=== PATIENT | female | born 1955 | race Hispanic/Latino ===

== ENCOUNTER 2018-09-20 19:34 | Emergency (ER) | payer BC ==
[2018-09-20 20:24] LABS: CREATININE 0.8 mg/dL (0.5-1.5); POTASSIUM 3.8 mmol/L (3.5-5.1)
[2018-09-20 20:25] LABS: APPEARANCE,URINE Clear (CLEAR); BILIRUBIN,URINE Negative (NEGATIVE); COLOR,URINE Yellow (YELLOW); GLUCOSE, URINE (UA) Negative (NEGATIVE); KETONES,URINE Negative (NEGATIVE); LEUKOCYTE ESTERASE ,URINE Trace (NEGATIVE); NITRATE,URINE Negative (NEGATIVE); OCCULT BLOOD,URINE Negative (NEGATIVE); PH,URINE 5.5 (5.0-8.0); PROTEIN,URINE Negative (NEGATIVE); UROBILINOGEN,URINE 0.2 mg/dL (0.2-1.0)
[2018-09-20 20:27] LABS: BASOPHILS % (AUTO) 0.6 % (0.0-5.0); EOSINOPHILS % (AUTO) 0.8 % (0.0-8.0); HEMATOCRIT 46.5 % (36-48); LYMPHOCYTES % (AUTO) 31.7 % (21.0-51.0); MEAN CORPUSCULAR HEMOGLOBIN 32.6 pg (27.0-33.0); MEAN CORPUSCULAR HGB CONC 34.5 g/dL (32.0-36.0); MEAN CORPUSCULAR VOLUME 94.4 fL (79-99); MONOCYTES % (AUTO) 7.9 % (3.0-13.0); PLATELET COUNT (AUTO) 174 K/uL (130-400); RED BLOOD CELL COUNT(AUTO) 4.93 MIL/uL (4.00-5.50); RED CELL DISTRIBUTION WIDTH 12.6 % (11.0-15.5); WHITE BLOOD COUNT (AUTO) 6.9 K/uL (4.8-10.8)
[2018-09-20 20:29] LABS: BILIRUBIN,TOTAL 0.6 mg/dL (0.2-1.0); TOTAL PROTEIN, SERUM 7.5 g/dL (6.0-8.3)
[2018-09-20 20:50] LABS: BACTERIA,URINE Rare /HPF (None Seen); RBC,URINE None Seen /HPF (0-1); SQUAMOUS EPITHELIAL CELL,UR Rare /HPF (0-2); WBC,URINE 0-1 /HPF (0-1)
[2018-09-20] MEDS ORDERED: MECLIZINE HCL 25 MG TABLET ONE (22:16)
== END 2018-09-20 22:42 | disposition home or self-care (01) ==
LOC: EDH 19:34
DX: I10 Essential (primary) hypertension (principal); H81.399 Other peripheral vertigo, unspecified ear; R51 Headache; E03.9 Hypothyroidism, unspecified; Z88.8 Allergy status to other drugs, medicaments and biological substances; Z98.890 Other specified postprocedural states
CPT/HCPCS: 36415; 70450; 71045; 80053; 81001; 82150; 82550; 83690; 84443; 84484; 85025; 93005

== ENCOUNTER 2025-03-06 23:16 | Emergency (ER) | payer BC, OTHER ==
[~2025-03-06] VITALS: Ht 157.5 cm; Wt 90.7 kg
[2025-03-06 23:58] LABS: BASOPHILS # (AUTO) 0.03 K/uL (0.00-0.20); BASOPHILS % (AUTO) 0.5 % (0.0-5.0); EOSINOPHILS # (AUTO) 0.03 K/uL (0.00-0.70); EOSINOPHILS % (AUTO) 0.5 % (0.0-8.0); HEMATOCRIT 42.5 % (36-48); IMMATURE GRANULOCYTE ABSOLUTE 0.01 K/uL (0-1); LYMPHOCYTES # (AUTO) 1.5 K/uL (1.0-4.8); LYMPHOCYTES % (AUTO) 27.7 % (21.0-51.0); MEAN CORPUSCULAR HEMOGLOBIN 31.6 pg (27.0-33.0); MEAN CORPUSCULAR HGB CONC 34.4 g/dL (32.0-36.0); MONOCYTES # (AUTO) 0.5 K/uL (0.1-1.0); MONOCYTES % (AUTO) 9.5 % (3.0-13.0); NEUTROPHILS # (AUTO) 3.4 K/uL (1.8-7.7); NEUTROPHILS % (AUTO) 61.6 % (40.0-77.0); PLATELET COUNT (AUTO) 134 K/uL (130-400); RED BLOOD CELL COUNT(AUTO) 4.62 MIL/uL (4.00-5.50); RED CELL DISTRIBUTION WIDTH 12.5 % (11.0-15.5); WHITE BLOOD COUNT (AUTO) 5.5 K/uL (4.8-10.8)
[2025-03-07 00:07] LABS: CREATININE 0.8 mg/dL (0.5-1.0); MAGNESIUM 1.8 mg/dL (1.80-2.40); POTASSIUM 3.5 mmol/L (3.5-5.1)
[2025-03-07] MEDS: cloNIDine HCL 0.1 MG TABLET PO ONE (00:32)
--- NOTE | 2025-03-07 00:49 | HMCIMG ---
CHEST 1VW HISTORY: Chest pain COMPARISON: 09/20/2018 FINDINGS: A frontal projection of the chest was obtained. Mild bilateral pulmonary infiltrates are seen. The heart is borderline enlarged. Degenerative changes are seen. No evidence of aortic calcification is seen. IMPRESSION: 1. Mild bilateral pulmonary infiltrates.
[2025-03-07 01:55] VITALS: BP 140/70; PULSE 66; RESP 18; TEMP 98.6; O2SAT 97
--- NOTE | 2025-03-07 01:56 | ERN ---
General Chief Complaint: Hypertension Stated Complaint: HIGH BP Time Seen by MD: 23:19 Time Seen by Midlevel: 23:19 Source: patient History of Present Illness Initial Comments The patient is a 61-year-old female presenting to the emergency department for an elevated blood pressure reading at home. Patient reports developing a headache at home she proceeded to check her blood pressure and it was 200 systolic. This occurred approximately 1 hour prior to arrival. She called her primary care doctor who advised she report to the ER for further evaluation. She was last seen by her primary care doctor yesterday and is in the process of having her blood pressure medications adjusted. She has an appointment with your primary care doctor tomorrow for repeat evaluation. On arrival with the patients specifically denies any vision changes, headache, dizziness, chest pain, palpitations, or any other symptoms at this time. Allergies: Coded Allergies: cefprozil (Unverified Allergy, Unknown, 03/06/25) meperidine (Unverified Allergy, Unknown, 03/06/25) Past Medical History Past Medical History: Hypertension, Hypothyroid Past Surgical History: Other, Surgical History Other: LUMPECTOMY X2 ROS Dictation CONSTITUTIONAL: Negative except for HPI HEAD/FACE: Negative except for HPI EENT: Negative except for HPI RESPIRATORY: Negative except for HPI GASTROINTESTINAL/ABDOMINAL: Negative except for HPI GENITOURINARY: Negative except for HPI MUSCULOSKELETAL: Negative except for HPI INTEGUMENTARY: Negative except for HPI NEUROLOGICAL/PSYCH: Negative except for HPI HEMATOLOGIC/LYMPHATIC: Negative except for HPI All Systems Negative, Except as noted above. 13 point review of systems assessed and all negative except for above. Physical Exam Physical Exam Dictation Vital Signs reviewed General Appearance: Alert, oriented x 3, no acute distress, well developed, nourished. Head and Face: non-traumatic. Eyes: PERRL, pink conjunctivas, eyelid no trauma, anterior chamber with arcus senilis. Ears: Pinnas intact and no signs of trauma or erythema ear canals clear and no discharge TM no erythema Nose: No discharge, no bleeding. Oropharynx: Mouth normal, tongue pink, pharynx clear,no erythema, tonsils no exudates, no abscesses noted, mucous membrane moist Neck: Supple, non-tender, no thyromegaly, no masses, no JVD, no bruits Breast:Deferred Chest:No tenderness, no crepitus, no paradoxical movement, no retractions Lungs:Clear, well-ventilated, symmetric, no rales, no wheezing, no rhonchi, no stridor, good breath sounds bilaterally Heart: Regular rate, regular rhythm, no murmur, no gallops Vascular: no peripheral edema, Abdomen: Soft, positive bowel sounds, nondistended, no guarding, nontender, no rebound, no masses no hepatomegaly, no splenomegaly, no Andrews's sign, no hernias. Rectal: Deferred Genital: Deferred Neurological: Normal speech, motor function intact, sensory function intact Musculoskeletal: Neck nontender, full range of motion, back nontender, full range of motion, Extremities: nontender, full range of motion Skin: Color pink, dry, no turgor, no rash, no lacerations, no abrasions, no contusions. Lymphatic: Deferred Results Laboratory and Microbiology Lab and Micro Result Laboratory Tests Test 03/06/25 23:49 White Blood Count 5.5 K/uL (4.8-10.8) Red Blood Count 4.62 MIL/uL (4.00-5.50) Hemoglobin 14.6 g/dL (12.0-16.0) Hematocrit 42.5 % (36-48) Mean Corpuscular Volume 92.0 fL (79-99) Mean Corpuscular Hemoglobin 31.6 pg (27.0-33.0) Mean Corpuscular Hemoglobin Concent 34.4 g/dL (32.0-36.0) Red Cell Distribution Width 12.5 % (11.0-15.5) Platelet Count 134 K/uL (130-400) Mean Platelet Volume 10.6 fL (7.5-10.5) H Immature Granulocyte % (Auto) 0.2 % (0-1) Neutrophils (%) (Auto) 61.6 % (40.0-77.0) Lymphocytes (%) (Auto) 27.7 % (21.0-51.0) Monocytes (%) (Auto) 9.5 % (3.0-13.0) Eosinophils (%) (Auto) 0.5 % (0.0-8.0) Basophils (%) (Auto) 0.5 % (0.0-5.0) Neutrophils # (Auto) 3.4 K/uL (1.8-7.7) Lymphocytes # (Auto) 1.5 K/uL (1.0-4.8) Monocytes # (Auto) 0.5 K/uL (0.1-1.0) Eosinophils # (Auto) 0.03 K/uL (0.00-0.70) Basophils # (Auto) 0.03 K/uL (0.00-0.20) Absolute Immature Granulocyte (auto 0.01 K/uL (0-1) Nucleated Red Blood Cells 0.0 % (0.0-0.19) Sodium Level 139 mmol/L (136-145) Potassium Level 3.5 mmol/L (3.5-5.1) Chloride Level 100 mmol/L (101-111) L Carbon Dioxide Level 28 mmol/L (21-32) Blood Urea Nitrogen 14 mg/dL (7-18) Creatinine 0.8 mg/dL (0.5-1.0) Glomerular Filtration Rate Calc 80 mL/min (>90) Random Glucose 123 mg/dL (70-105) H Total Calcium 9.5 mg/dL (8.5-10.1) Magnesium Level 1.80 mg/dL (1.80-2.40) Troponin I High Sensitivity 7 ng/L (4-50) Labs Reviewed?: Yes MDM MDM: Differential diagnosis: Hypertensive urgency, hypertensive emergency, uncontrolled hypertension, electrolyte abnormality There are no social concerns with this patient. Prescription drug management Prescriptions will include: None Medical management and examination interpretation discussions were had by me with other qualified healthcare professionals as indicated for the patient's care. ED Course Orders Procedure Category Date Status Time 12 Lead Ekg Tracing- EKG 03/06/25 Logged Technical 23:33 Cbc With Differential LAB 03/06/25 Complete 23:33 Basic Metabolic Panel LAB 03/06/25 Complete 23:33 Magnesium LAB 03/06/25 Complete 23:33 Troponin I High LAB 03/06/25 Complete Sensitivity 23:33 Chest 1vw RAD 03/06/25 Resulted 23:33 Clonidine Hcl 0.1 Mg PHA 03/07/25 Complete Tablet (Catapres 0. 00:30 Current Medications Medications (Trade) Dose Ordered Sig/Cary Route PRN Reason Start Time Stop Time Status Last Admin Dose Admin Clonidine HCl (CATApres 0.1 mg TAB) 0.1 mg ONCE ONCE PO 03/07/25 00:30 03/07/25 00:31 DC 03/07/25 00:32 Vital Signs Date Time Temp Pulse Resp B/P (MAP) Pulse Ox O2 Delivery O2 Flow Rate FiO2 03/07/25 01:55 98.6 66 18 140/70 97 Room Air* 0 03/07/25 01:12 98.4 78 18 152/78 98 Room Air* 0 03/07/25 00:32 174/88 03/07/25 00:05 76 18 174/86 97 Room Air* 0 03/06/25 23:17 98.1 84 19 185/90 98 Room Air 0 [facility] [address] [place] [address] IMAGING REPORT Signed PATIENT: JED HOWARD MR#: [id number] : 1955 SEX: F AGE: 69 LOCATION: [facility] ORDER 33 STATUS: REG REPORT#: [id number] SERVICE 32 REASON: cp ORDERING PHYSICIAN: JENNIFER MANRIQUE PROCEDURE: CXR1VW - CHEST 1VW CHEST 1VW HISTORY: Chest pain COMPARISON: 09/20/2018 FINDINGS: A frontal projection of the chest was obtained. Mild bilateral pulmonary infiltrates are seen. The heart is borderline enlarged. Degenerative changes are seen. No evidence of aortic calcification is seen. IMPRESSION: 1. Mild bilateral pulmonary infiltrates. DICTATED BY: MANISHA MCKINLEY MD DATE: 03/07/2544 ELECTRONICALLY SIGNED BY: MANISHA MCKINLEY MD DATE: 03/07/259 DX & DISP Disposition: Discharge Departure Impression: Primary Impression: Uncontrolled hypertension Condition: Stable Additional Instructions: Your blood work today is unremarkable. Your EKG does not show any evidence of a heart attack. Your cardiac enzymes are negative. Your chest x-ray shows mild congestion which may be related to your history of bronchitis. Follow up with your primary care doctor tomorrow as scheduled. Referrals: SHARIF HARMON (PCP) Time of Disposition: 01:55 I have reviewed the case, and I agree with, Diagnosis and Plan I performed the substantive portion of the visit. I have reviewed and personally made and approve the management plan that is documented in the note by myself or the YADIEL. I acknowledge for responsibility for the patient's management plan. JENNIFER MANRIQUE Mar 07, 2025 01:56
--- NOTE | 2025-03-07 06:44 | EKG ---
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 : 1955 Requested By: JENNIFER MANRIQUE Order Number: [id number] Reading MD: Aniket Juarez Measurements Intervals [place] Rate: 77 P: 27 [place]: 184 QRS: 4 QRSD: 75 T: -3 QT: 391 QTc: 444 Interpretive Statements Sinus arrhythmia Atrial premature complex Borderline T abnormalities, diffuse leads Compared to ECG 09/20/2018 20:00:57 T-wave abnormality now present Sinus rhythm no longer present Left ventricular hypertrophy no longer present Myocardial infarct finding no longer present Electronically Signed On 03-07-2025 15:09:34 CDT by Aniket Juarez Please click the below link to view image of tracing.
== END 2025-03-07 02:06 | disposition home or self-care (01) ==
LOC: EDH 23:16
DX: I10 Essential (primary) hypertension (principal); E03.9 Hypothyroidism, unspecified; Z88.5 Allergy status to narcotic agent
CPT/HCPCS: 36415; 71045; 80048; 83735; 84484; 85025; 93005; 99285

== ENCOUNTER 2025-08-30 10:21 | Observation (INO) | payer OTHER ==
[~2025-08-30] VITALS: Ht 157.5 cm; Wt 76.8 kg
[~2025-08-30 10:21] MED LIST: AMLO2.5T4 PO; HYDR50TA PO; LEVO112C5 PO; LOSA100T59 PO; METF-444 PO; METO-409 PO
--- NOTE | 2025-08-30 10:41 | ERN ---
ED Note History of Present Illness Stated Complaint: ABDOMINAL PAIN Chief Complaint: Abdominal Pain Time Seen by MD: 10:26 Dictation: Patient is 70 years old female who came to ER during the recent hospitalization with a complaint of right upper quadrant pain x2 months and trigger with a greasy food. Abdominal ultrasound result revealed cholelithiasis with cholecystitis. Sludge in the gallbladder. Dilated common bile duct and intrahepatic biliary ducts recommend MRCP. Hepatic steatosis. .During evaluation of a patient stated that just recently she had done MRCP on last Monday which showed distended bile duct with large internal gallstone distended gallbladder with large internal gallstones and hepatic enlargement. ERCP was ordered and GI was consulted as well as surgeon was consulted for possible cholecystectomy. CT abdomen/pelvis showed choledocholithiasis with the distal CBD calculus. Gallbladder hydrops with large cholelithiasis. Hepatomegaly with hepatic steatosis. Subpleural reticulation in both lower lungs. Diffuse colonic diverticulosis without diverticulitis. Patient also underwent cholecystectomy on 07/27/[address] Kern. She came in today stating that she has had severe epigastric pain worse when she eats. She stated that there is a ERCP planned for 09/01/[address] Lynda Leahy. The ERCP attempted while she was hospitalized apparently was unsuccessful and the stone could not be retrieved. Temperature 97.6 pulse 81 respirations 20 blood pressure 144 over 82 pulse oximetry 99% on room air Chronic medical problems include diabetes mellitus, hypertension, hyperlipidemia, hypothyroidism, history of that breast lumpectomy Allergies: Coded Allergies: cefprozil (Unverified Allergy, Unknown, 03/06/25) meperidine (Unverified Allergy, Unknown, 03/06/25) Home Meds Reported Medications Metoprolol Succinate (Metoprolol Succinate) 100 Mg Tab.er.24h, 100 MG PO DAILY, TAB 07/26/25 Amlodipine Besylate (Amlodipine Besylate) 2.5 Mg Tablet, 1 TAB PO DAILY for 30 Days, #30 TAB 0 Refills 07/25/25 Levothyroxine Sodium (Levothyroxine) 112 Mcg Capsule, 1 CAP PO DAILY for 30 Days, #30 CAP 0 Refills 07/25/25 Hydrochlorothiazide (Hydrochlorothiazide) 50 Mg Tablet, 1 TAB PO DAILY for 30 Days, #30 TAB 0 Refills 07/25/25 Losartan Potassium (Losartan Potassium) 100 Mg Tablet, 1 TAB PO DAILY for 30 Days, #30 TAB 0 Refills 07/25/25 Metformin HCl (Metformin HCl) 500 Mg Tablet, 500 MG PO AM, TAB 07/25/25 Past Medical History Past Medical History: Diabetes-Type II, Hypertension, Hypothyroid Surgical History: BTL, Surgical History Other: LEFT LUMPECTOMY Family History: Negative Social History: Negative History: Not Applicable RN Note Reviewed/Agreed w/PFSH: Yes Review of System Dictation Constitutional: Negative for fever,chills, and weight loss Eyes: Negative for injury, pain,redness, and discharge ENT: Negative for injury,pain or swelling Cardiovascular: Negative for chest pain, palpitations, and edema Respiratory: Negative for shortness of breath, cough, and wheezing, Abdomen/GI: Positive for epigastric and right upper quadrant abdominal pain, nausea, vomiting, diarrhea, and constipation Back: Negative for injury and pain : Negative for injury, bleeding and discharge MS/Extremity: Negative for injury and deformity Skin: Negative for rash, and discoloration Neuro: Negative for headache, weakness, numbness, tingling, and seizure Psych: Negative for suicide ideation, homicidal ideation, and hallucinations Initial Vital Sign VS Vital Signs Date Time Temp Pulse Resp B/P (MAP) Pulse Ox O2 Delivery O2 Flow Rate FiO2 08/30/25 10:23 97.5 81 20 144/82 99 Room Air 08/30/25 11:23 0 21 Physical Exam Dictation General: awake, alert, NAD Head/Face: Normocephalic, atraumatic Eyes: PERRL, EOMI, vision at baseline ENT: oral cavity clear, TMs clear, no signs of infection Neck: Trachea midline, supple, no nuchal rigidity Cardiovascular: RRR, normal S1/S2, No MRGs, no JVD Respiratory: CTAB, no respiratory distress, No rales or wheezes Abdomen: Soft, tenderness in the epigastric area, non-distended, normal bowel sounds, no guarding or rebound. Skin: Warm, dry, normal turgor, no rash MS/Extremity: Pulses equal, no cyanosis, neurovascular intact, FROM Neuro: COAx4, GCS 15, strength 5/5, CN 2-12 intact, normal cerebellar exam, normal gait, Psych: Normal behavior, mood, and affect normal Extremities-trace edema without any palpable cords, Homans sign is negative Results (Laboratory/Radiology) Laboratory/Radiology Laboratory Tests Test 08/30/25 10:50 08/30/25 11:07 08/30/25 15:59 08/30/25 19:37 White Blood Count 5.3 K/uL (4.8-10.8) Red Blood Count 4.19 MIL/uL (4.00-5.50) Hemoglobin 13.7 g/dL (12.0-16.0) Hematocrit 40.1 % (36-48) Mean Corpuscular Volume 95.7 fL (79-99) Mean Corpuscular Hemoglobin 32.7 pg (27.0-33.0) Mean Corpuscular Hemoglobin Concent 34.2 g/dL (32.0-36.0) Red Cell Distribution Width 13.3 % (11.0-15.5) Platelet Count 189 K/uL (130-400) Mean Platelet Volume 10.5 fL (7.5-10.5) Immature Granulocyte % (Auto) 0.4 % (0-1) Neutrophils (%) (Auto) 66.6 % (40.0-77.0) Lymphocytes (%) (Auto) 17.9 % (21.0-51.0) L Monocytes (%) (Auto) 11.7 % (3.0-13.0) Eosinophils (%) (Auto) 2.6 % (0.0-8.0) Basophils (%) (Auto) 0.8 % (0.0-5.0) Neutrophils # (Auto) 3.5 K/uL (1.8-7.7) Lymphocytes # (Auto) 1.0 K/uL (1.0-4.8) Monocytes # (Auto) 0.6 K/uL (0.1-1.0) Eosinophils # (Auto) 0.14 K/uL (0.00-0.70) Basophils # (Auto) 0.04 K/uL (0.00-0.20) Absolute Immature Granulocyte (auto 0.02 K/uL (0-1) Nucleated Red Blood Cells 0.0 % (0.0-0.19) Sodium Level 138 mmol/L (136-145) Potassium Level 3.5 mmol/L (3.5-5.1) Chloride Level 102 mmol/L (101-111) Carbon Dioxide Level 30 mmol/L (21-32) Blood Urea Nitrogen 10 mg/dL (7-18) Creatinine 0.9 mg/dL (0.5-1.0) Glomerular Filtration Rate Calc 69 mL/min (>90) Random Glucose 142 mg/dL (70-105) H Total Calcium 9.0 mg/dL (8.5-10.1) Total Bilirubin 1.6 mg/dL (0.2-1.0) H Aspartate Amino Transf (AST/SGOT) 66 U/L (10-37) H Alanine Aminotransferase (ALT/SGPT) 70 U/L (12-78) Alkaline Phosphatase 255 U/L (50-136) H Total Protein 7.3 g/dL (6.0-8.3) Albumin 3.2 g/dL (3.5-5.0) L Lipase 26 U/L (16-77) Urine Color YELLOW (YELLOW) Urine Appearance HAZY (CLEAR) Urine pH 6.0 (5.0-8.0) Urine Specific [place] 1.015 (1.001-1.031) Urine Protein NEGATIVE mg/dL (NEGATIVE) Urine Glucose (UA) NEGATIVE mg/dL (NEGATIVE) Urine Ketones NEGATIVE mg/dL (NEGATIVE) Urine Occult Blood NEGATIVE (NEGATIVE) Urine Nitrate NEGATIVE (NEGATIVE) Urine Bilirubin NEGATIVE mg/dL (NEGATIVE) Urine Urobilinogen 2.0 mg/dL (0.2-1.0) H Urine Leukocyte Esterase 250 Vinicio/uL (NEGATIVE) H Urine RBC 0-1 /HPF (0-1) Urine WBC 11-25 /HPF (0-1) H Urine Squamous Epithelial Cells MOD /HPF (0-2) Urine Bacteria FEW /HPF (None Seen) Whole Blood Glucose 96 MG/DL (70-110) 122 MG/DL (70-110) H Test 08/31/25 05:28 08/31/25 05:53 08/31/25 11:18 08/31/25 19:22 Whole Blood Glucose 110 MG/DL (70-110) 96 MG/DL (70-110) 79 MG/DL (70-110) White Blood Count 5.5 K/uL (4.8-10.8) Red Blood Count 3.71 MIL/uL (4.00-5.50) L Hemoglobin 11.8 g/dL (12.0-16.0) L Hematocrit 35.5 % (36-48) L Mean Corpuscular Volume 95.7 fL (79-99) Mean Corpuscular Hemoglobin 31.8 pg (27.0-33.0) Mean Corpuscular Hemoglobin Concent 33.2 g/dL (32.0-36.0) Red Cell Distribution Width 13.2 % (11.0-15.5) Platelet Count 118 K/uL (130-400) #L Mean Platelet Volume 10.4 fL (7.5-10.5) Nucleated Red Blood Cells 0.0 % (0.0-0.19) Sodium Level 141 mmol/L (136-145) Potassium Level 3.3 mmol/L (3.5-5.1) L Chloride Level 106 mmol/L (101-111) Carbon Dioxide Level 27 mmol/L (21-32) Blood Urea Nitrogen 9 mg/dL (7-18) Creatinine 0.7 mg/dL (0.5-1.0) Glomerular Filtration Rate Calc 94 mL/min (>90) Random Glucose 104 mg/dL (70-105) Total Calcium 8.2 mg/dL (8.5-10.1) L Magnesium Level 1.70 mg/dL (1.80-2.40) L Total Bilirubin 0.9 mg/dL (0.2-1.0) # Direct Bilirubin 0.4 mg/dL (0.0-0.3) H Aspartate Amino Transf (AST/SGOT) 38 U/L (10-37) H Alanine Aminotransferase (ALT/SGPT) 47 U/L (12-78) # Alkaline Phosphatase 195 U/L (50-136) H Total Protein 5.8 g/dL (6.0-8.3) #L Albumin 2.5 g/dL (3.5-5.0) #L Labs Reviewed?: Yes ED Course ED Course Orders Procedure Category Date Status Time Cbc With Differential LAB 08/30/25 Complete 10:42 Comprehensive LAB 08/30/25 Complete Metabolic Panel 10:42 Urinalysis Profile LAB 08/30/25 Complete 10:42 Pantoprazole 40mg Inj PHA 08/30/25 Complete (Protonix 40mg Inj 11:00 Lipase LAB 08/30/25 Complete 10:42 Ketorolac PHA 08/30/25 Complete Tromethamine 15mg/Ml 11:00 Culture Urine MARIANA 08/30/25 In Process 11:39 0.9%Nacl 1000ml (Ns PHA 08/30/25 Complete 1000ml) 12:00 Amp/Sulbac 3gm+Ns PHA 08/30/25 Complete 100ml (Unasyn 3gm+Ns 1 12:00 Admit Orders ADM 08/30/25 Transmitted 12:34 Edm Admit Bridge Order ADM 08/30/25 Transmitted 12:43 Amp/Sulbac 3gm+Ns PHA 08/30/25 In Process 100ml (Unasyn 3gm+Ns 1 20:00 Gastroenterology CONPHYSVC 08/30/25 Transmitted Consult 13:36 Cbc Without LAB 08/31/25 Complete Differential 04:00 Magnesium LAB 08/31/25 Complete 04:00 Hepatic Function Panel LAB 08/31/25 Complete 04:00 Acetaminophen 325 Tab PHA 08/30/25 In Process (Tylenol 325mg Tab 14:00 Acetaminophen 325 Tab PHA 08/30/25 In Process (Tylenol 325mg Tab 14:00 Ondansetron 4mg Inj PHA 08/30/25 In Process (Zofran 4mg Inj) 14:00 Initiate Hypoglycemia RAISSA 08/30/25 In Process Protocol 13:36 Dextrose 50%-Water PHA 08/30/25 In Process (D50w) 14:00 Glucagon 1mg Kit PHA 08/30/25 In Process (Glucagon 1mg Kit) 14:00 Initiate RAISSA 08/30/25 In Process Hyperglycemia Protoco 13:36 Insulin Regular, PHA 08/30/25 In Process Human 3ml (Humulin R 16:30 Magnesium 2gm Premix PHA 08/30/25 Complete 50ml (Magnesium 2gm 14:00 Us Abdominal Complete US 08/30/25 Resulted 13:54 Clear Liquid DIET 08/30/25 Complete Lunch Blood Sugars Achs CPOE 08/30/25 Transmitted 13:55 0.9%Nacl 1000ml (Ns PHA 08/30/25 In Process 1000ml) 14:00 Pantoprazole 40mg Inj PHA 08/30/25 In Process (Protonix 40mg Inj 21:00 Apply Scds CPOE 08/30/25 Transmitted 14:15 *Nursing CPOE 08/30/25 Transmitted Communication: 16:57 Npo After Midnight RAISSA 09/01/25 Transmitted 00:00 Consent Ercp CPOE 09/01/25 Transmitted 07:00 Schedule Or Consented CPOE 09/01/25 Transmitted Surgery 07:00 *Nursing CPOE 08/30/25 Transmitted Communication: 17:58 Basic Metabolic Panel LAB 08/31/25 Complete 04:00 Nothing By Mouth DIET 09/01/25 Transmitted Breakfast Potassium Chloride PHA 08/31/25 Complete 20meq Er (K-Dur/Klor- 09:00 Magnesium 2gm Premix PHA 08/31/25 In Process 50ml (Magnesium 2gm 09:00 Cbc With Differential LAB 09/01/25 In Process 04:00 Comprehensive LAB 09/01/25 In Process Metabolic Panel 04:00 Magnesium LAB 09/01/25 In Process 04:00 Amlodipine 2.5 Mg Tab PHA 08/31/25 Complete (Norvasc 2.5mg Tab 09:00 Losartan 100 Mg PHA 08/31/25 In Process Tablet (Cozaar 100mg 09:00 Hydrochlorothiazide PHA 09/01/25 In Process 25mg (Hydrochlorothi 09:00 Levothyroxine 112 Mcg PHA 09/01/25 In Process Tablet (Synthroid 06:30 Metoprolol Succinate PHA 09/01/25 Complete (Toprol Xl) 09:00 Amlodipine 2.5 Mg Tab PHA 08/31/25 In Process (Norvasc 2.5mg Tab 21:00 Metoprolol Succinate PHA 08/31/25 In Process (Toprol Xl) 21:00 Nothing By Mouth DIET 08/31/25 Complete Lunch Ercp Bili/Panc Duct RAD 08/31/25 Logged 11:00 Schedule Or Consented CPOE 08/31/25 Transmitted Surgery 11:00 Iv Insertion CPOE 08/31/25 Transmitted 11:00 Current Medications Medications (Trade) Dose Ordered Sig/Cary Route PRN Reason Start Time Stop Time Status Last Admin Dose Admin Ampicillin Sodium/ Sulbactam Sodium (Unasyn 3gm+NS 100ml) 3 gm ONCE ONCE IV 08/30/25 12:00 08/30/25 12:01 DC 08/30/25 12:34 Ketorolac Tromethamine (toRADol) 15 mg ONCE ONCE IV 08/30/25 11:00 08/30/25 11:01 DC Pantoprazole Sodium (PROTonix 40MG INJ) 40 mg ONCE ONCE IVP 08/30/25 11:00 08/30/25 11:01 DC 08/30/25 11:08 Sodium Chloride 1,000 ml @ 0 mls/hr ONCE ONCE IV 08/30/25 12:00 08/30/25 12:01 DC 08/30/25 12:34 Vital Signs Date Time Temp Pulse Resp B/P (MAP) Pulse Ox O2 Delivery O2 Flow Rate FiO2 09/01/25 03:56 98.1 71 18 132/63 99 Room Air 09/01/25 00:00 98.1 79 18 140/76 99 Room Air 08/31/25 20:10 98 Room Air* 0 08/31/25 20:01 98.1 82 18 151/83 98 Room Air 08/31/25 16:00 98.1 81 18 151/74 98 Room Air 08/31/25 12:00 97.9 76 19 147/77 98 Room Air 08/31/25 08:25 98 Room Air* 0 08/31/25 08:00 98.1 76 18 142/77 98 Room Air 08/31/25 03:56 98.4 77 18 130/71 99 Room Air 08/31/25 00:02 98.4 74 18 130/72 99 Room Air 08/30/25 20:10 99 Room Air* 0 08/30/25 20:10 98.4 72 18 137/71 99 Room Air 08/30/25 15:15 97.9 73 19 132/62 98 Room Air 08/30/25 15:00 97.3 71 15 129/71 97 Room Air* 0 08/30/25 12:45 97.3 72 16 139/73 99 Room Air* 0 08/30/25 11:23 97.3 67 16 158/82 97 Room Air* 0 08/30/25 10:23 97.5 81 20 144/82 99 Room Air Medical Decision Making MDM Differential diagnosis, Renal colic, biliary colic Gastritis, esophagitis, gastroesophageal reflux disease, acute cholecystitis, peptic ulcer disease, gastroenteritis, colitis, constipation, pancreatitis, diverticulitis Patient is 70 years old female who came to ER during the recent hospitalization with a complaint of right upper quadrant pain x2 months and trigger with a greasy food. Abdominal ultrasound result revealed cholelithiasis with cholecystitis. Sludge in the gallbladder. Dilated common bile duct and intrahepatic biliary ducts recommend MRCP. Hepatic steatosis. .During evaluation of a patient stated that just recently she had done MRCP on last Monday which showed distended bile duct with large internal gallstone distended gallbladder with large internal gallstones and hepatic enlargement. ERCP was ordered and GI was consulted as well as surgeon was consulted for possible cholecystectomy. CT abdomen/pelvis showed choledocholithiasis with the distal CBD calculus. Gallbladder hydrops with large cholelithiasis. Hepatomegaly with hepatic steatosis. Subpleural reticulation in both lower lungs. Diffuse colonic diverticulosis without diverticulitis. Patient also underwent cholecystectomy on 07/27/[address] Kern. She came in today stating that she has had severe epigastric pain worse when she eats. She stated that there is a ERCP planned for 09/01/[address] Lynda Leahy. The ERCP attempted while she was hospitalized apparently was unsuccessful and the stone could not be retrieved. Temperature 97.6 pulse 81 respirations 20 blood pressure 144 over 82 pulse oximetry 99% on room air Chronic medical problems include diabetes mellitus, hypertension, hyperlipidemia, hypothyroidism, history of that breast lumpectomy 11:50 a.m. labs reviewed CBC with a normal limits. Patient's LFTs are very abnormal alkaline phosphatase is 255 bilirubin is 1.6. Urinalysis was very abnormal with positive leuko esterase and increased amounts of WBCs suggestive of UTI I updated the patient and spouse on all the findings and my concerns for poss ible cholangitis versus simply choledocholithiasis related pain. I also updated them about the UTI and recommended admission to the hospital in view of multiple issues and they both were agreeable 12:40 p.m. patient accepted by Jessica Hancock mid-level provider for hospitalist group for admission and further management Rationale: Tests considered and ordered secondary to shared decision making include: labs, ECG and radiology Previous outside records reviewed: Old ER visits. Risk of complication and/or morbidity or mortality of patient management: None Medications-Per medication reconciliation Need for hospitalization: Patient does meet criteria for hospitalization. Need for emergency major/minor surgery: No There are no social concerns with this patient. Prescription drug management Prescriptions will include symptomatic care Patient's prior external medical records from other ER visits were reviewed by me as indicated. Prior testing and results from previous visits were reviewed. Prior tests were taken into account with medical decision making and resource utilization, independent historian/historians were used to obtain complete medical history. I independently interpreted the test that were performed, results were reviewed by me and considered findings on radiology if ordered. Medical management and examination interpretation discussions were had by me with other qualified healthcare professionals as indicated for the patient's care. Problem List Problem List: (1) Cholangitis (2) Choledocholithiasis (3) Epigastric abdominal pain (4) UTI (urinary tract infection) DX & DISP Disposition: Inpatient Decision to Admit Time: 11:10 Departure Impression: Primary Impression: Cholangitis Additional Impressions: Choledocholithiasis, UTI (urinary tract infection), Epigastric abdominal pain Condition: Stable Additional Instructions: Patient was informed of all the diagnostic labs and procedures conducted in the emergency room today and demonstrated understanding of the results. I personally reviewed and interpreted all the diagnostic exams performed in the ER today. The patient will be admitted to the hospital for further treatment and evaluation. Disposition-admit to facility Condition-stable/guarded Course-uncertain at this time Pain status-decreased Assessment-exam unchanged Admission Certification- I certify that the patients status is appropriate and is based on my best clinical judgment and the patient's condition as documented in the medical records Referrals: SHARIF HARMON (PCP) RUIZ MEDLEY MD Aug 30, 2025 10:41
[2025-08-30 11:08] LABS: IMMATURE GRANULOCYTE ABSOLUTE 0.02 K/uL (0-1); NUCLEATED RED BLOOD CELLS 0.0 % (0.0-0.19); PLATELET COUNT (AUTO) 189 K/uL (130-400); RED BLOOD CELL COUNT(AUTO) 4.19 MIL/uL (4.00-5.50); RED CELL DISTRIBUTION WIDTH 13.3 % (11.0-15.5); WHITE BLOOD COUNT (AUTO) 5.3 K/uL (4.8-10.8)
[2025-08-30 11:13] LABS: CREATININE 0.9 mg/dL (0.5-1.0); GLOMERULAR FILTR. RATE CALC 69.0 mL/min (>90); GLUCOSE,RANDOM 142.0 mg/dL (70-105); SODIUM SERUM 138.0 mmol/L (136-145); UREA NITROGEN, BLOOD 10.0 mg/dL (7-18)
[2025-08-30 11:17] LABS: ASPARTATE AMINOTRANSFERASE 66.0 U/L (10-37); TOTAL PROTEIN, SERUM 7.3 g/dL (6.0-8.3)
[2025-08-30 11:37] LABS: GLUCOSE, URINE (UA) NEGATIVE (NEGATIVE); LEUKOCYTE ESTERASE ,URINE 250 Leu/uL (NEGATIVE); NITRATE,URINE NEGATIVE (NEGATIVE); OCCULT BLOOD,URINE NEGATIVE (NEGATIVE)
[2025-08-30 11:39] LABS: ADD UA MICROSCOPIC YES; APPEARANCE,URINE HAZY (CLEAR)
[2025-08-30 11:43] LABS: SQUAMOUS EPITHELIAL CELL,UR MOD /HPF (0-2)
[2025-08-30] MEDS: 0.9%NACL 1000ML 1,000 ML IV ONE (12:34)
[2025-08-30] MEDS: AMP/SULBAC 3GM+NS 100ML IV ONE (12:34)
[2025-08-30] MEDS ORDERED: GLUCAGON 1MG KIT 1 MG ML IM PRN (14:00)
[2025-08-30] MEDS ORDERED: DEXTROSE 50%-WATER 50 ML DISP.SYRIN IV PRN (14:00)
--- NOTE | 2025-08-30 14:18 | HP ---
[facility] HISTORY AND PHYSICAL Date of Service: Aug 30, 2025 Time of Service: 13:57 HISTORY OF PRESENT ILLNESS: [This is 70 year old female with past medical history of diabetes mellitus, hypertension, hyperlipidemia and hypothyroidism who presented to the emergency department with complaints of abdominal pain and epigastric pain that started midnight on . Patient stated that she also had some associated chills and subjective low-grade fever. Patient was recently admitted at [facility] back in [id number] for which patient was then found with choledocholithiasis and acute cholecystitis for which she had a laparoscopic cholecystectomy done by Dr. Plaza. During that admission, she was told to have a stone in the CBD and an ERCP was done but was unsuccessful but they rescheduled for another ERCP for September 01, 2025 but the patient came to the emergency early this morning due to persistent/severe abdominal and epigastric pain. Patient denies any nausea vomiting or diarrhea. Patient stated that she would still have some discomfort after she eats but has not had a full meal in the last 24 hours due to her abdominal pain. In the emergency department, her initial vitals were temperature 97.5 F, pulse 81, respiratory rate 20, blood pressure 144/82, pulse oximetry 99% on room air. Laboratory data reviewed, hematology is fairly unremarkable, chemistry showed random glucose of 142, total bilirubin of 1.6, AST 66, ALT 70, alkaline phosphatase 255, albumin 3.2. Was referred to the hospitalist for further evaluation and management. ] REVIEW OF SYSTEMS CONSTITUTIONAL: Denies fevers, chills, or night sweats. No unintentional weight loss reported. NEUROLOGICAL: Denies headache, amaurosis fugax, motor weakness, sensory deficit, vertigo/spinning sensation, gait abnormalities, or tremors. ENT: No hearing loss, otalgia, otorrhea, rhinitis, rhinorrhea, hoarseness, or sore throat. CARDIOVASCULAR: Denies any exertional angina, dyspnea on exertion, orthopnea, paroxysmal nocturnal dyspnea, palpitations, life-threatening arrhythmias, claudication. PULMONARY: Denies any shortness of breath, cough, phlegm/sputum, hemoptysis, pleuritic chest pain. SLEEP: Denies morning headaches, daytime somnolence or napping. Denies difficulty falling asleep, staying asleep, waking from sleep. Denies knowledge of snoring. GASTROINTESTINAL: Denies any type of dysphagia to either liquids or solids. Denies nausea, vomiting, pyrosis, early satiety, abdominal pain, diarrhea, co nstipation, or changes in stool consistency or caliber. Denies coffee-ground emesis, hematemesis, hematochezia, or melanotic stools. GENITOURINARY: Denies frequency, urgency, nocturia, hematuria or incontinence (Storage/Irritative symptoms.) Low urinary stream, straining to void, urinary intermittency or hesitancy, splitting of the voiding stream, terminal dribbling. ENDOCRINOLOGIC: Denies polyuria, polydipsia, polyphagia or heat/cold intolerances. HEMATOLOGIC: Denies thrombophilia/previous clots, or coagulopathy/bleeding disorders. ONCOLOGIC: Denies personal history of malignancy. DERMATOLOGIC: Denies rashes or pruritus. PSYCHIATRIC: Denies any suicidal or homicidal ideation. Denies hallucinations. PAST MEDICAL HISTORY: [ Diabetes, hypertension, hyperlipidemia and hypothyroidism ] PAST SURGICAL HISTORY: [ x2 and left breast lumpectomy ] PAST SOCIAL HISTORY: [ Patient lives with . Patient denies alcohol tobacco and recreational drug use] FAMILY HISTORY: [ Noncontributory ] Coded Allergies: cefprozil (Unverified Allergy, Unknown, 03/06/25) meperidine (Unverified Allergy, Unknown, 03/06/25) PHYSICAL EXAM GENERAL APPEARANCE: The patient is awake, alert, and oriented, in no acute cardiopulmonary distress. NEUROLOGICAL: Cranial nerves II-XII grossly intact. Motor is 5/5 in bilateral upper and lower extremities proximal to distal. No sensory deficits. HEENT: Face is symmetric. Pupils are equal and reactive. Extraocular movements are intact. NECK: Supple. No JVD. No thyromegaly. No submental, submandibular, pre-/postauricular, occipital or supraclavicular lymphadenopathy. CHEST: Normal chest expansion. No Telemetry. LUNGS: Absence of any rales, rhonchi or any wheezing. CARDIOVASCULAR: Regular. S1 and S2 normal. No appreciable rubs, murmurs or gallops. ABDOMEN: Soft, nontender, and nondistended. There is no rebound, voluntary guarding, or rigidity. : Deferred. No Madden. EXTREMITIES: Non-edematous and not cyanotic. No clubbing. Good capillary refill. SKIN: No skin breakdown. Vital Sign (Last 24 Hours) 08/30/25 12:45 Temp 97.3 Pulse 72 Resp 16 B/P (MAP) 139/73 Pulse Ox 99 O2 Delivery Room Air* O2 Flow Rate 0 FiO2 21 LABS: Laboratory: Test 08/30/25 11:07 08/30/25 10:50 Range/Units Urine Color YELLOW YELLOW Urine Appearance HAZY CLEAR Urine pH 6.0 5.0-8.0 Urine Specific [place] 1.015 1.001-1.031 Urine Protein NEGATIVE NEGATIVE mg/dL Urine Glucose (UA) NEGATIVE NEGATIVE mg/dL Urine Ketones NEGATIVE NEGATIVE mg/dL Urine Occult Blood NEGATIVE NEGATIVE Urine Nitrate NEGATIVE NEGATIVE Urine Bilirubin NEGATIVE NEGATIVE mg/dL Urine Urobilinogen 2.0 H 0.2-1.0 mg/dL Urine Leukocyte Esterase 250 H NEGATIVE Vinicio/uL Urine RBC 0-1 0-1 /HPF Urine WBC 11-25 H 0-1 /HPF Urine Squamous Epithelial Cells MOD 0-2 /HPF Urine Bacteria FEW None Seen /HPF White Blood Count 5.3 4.8-10.8 K/uL Red Blood Count 4.19 4.00-5.50 MIL/uL Hemoglobin 13.7 12.0-16.0 g/dL Hematocrit 40.1 36-48 % Mean Corpuscular Volume 95.7 79-99 fL Mean Corpuscular Hemoglobin 32.7 27.0-33.0 pg Mean Corpuscular Hemoglobin Concent 34.2 32.0-36.0 g/dL Red Cell Distribution Width 13.3 11.0-15.5 % Platelet Count 189 130-400 K/uL Mean Platelet Volume 10.5 7.5-10.5 fL Immature Granulocyte % (Auto) 0.4 0-1 % Neutrophils (%) (Auto) 66.6 40.0-77.0 % Lymphocytes (%) (Auto) 17.9 L 21.0-51.0 % Monocytes (%) (Auto) 11.7 3.0-13.0 % Eosinophils (%) (Auto) 2.6 0.0-8.0 % Basophils (%) (Auto) 0.8 0.0-5.0 % Neutrophils # (Auto) 3.5 1.8-7.7 K/uL Lymphocytes # (Auto) 1.0 1.0-4.8 K/uL Monocytes # (Auto) 0.6 0.1-1.0 K/uL Eosinophils # (Auto) 0.14 0.00-0.70 K/uL Basophils # (Auto) 0.04 0.00-0.20 K/uL Absolute Immature Granulocyte (auto 0.02 0-1 K/uL Nucleated Red Blood Cells 0.0 0.0-0.19 % Sodium Level 138 136-145 mmol/L Potassium Level 3.5 3.5-5.1 mmol/L Chloride Level 102 101-111 mmol/L Carbon Dioxide Level 30 21-32 mmol/L Blood Urea Nitrogen 10 7-18 mg/dL Creatinine 0.9 0.5-1.0 mg/dL Glomerular Filtration Rate Calc 69 >90 mL/min Random Glucose 142 H 70-105 mg/dL Total Calcium 9.0 8.5-10.1 mg/dL Total Bilirubin 1.6 H 0.2-1.0 mg/dL Aspartate Amino Transf (AST/SGOT) 66 H 10-37 U/L Alanine Aminotransferase (ALT/SGPT) 70 12-78 U/L Alkaline Phosphatase 255 H 50-136 U/L Total Protein 7.3 6.0-8.3 g/dL Albumin 3.2 L 3.5-5.0 g/dL Lipase 26 16-77 U/L Current Medications Medications (Trade) Dose Ordered Sig/Cary Route PRN Reason Start Time Stop Time Status Last Admin Dose Admin Acetaminophen (TYLenol 325MG TAB) 650 mg Q4H PRN PO TEMPERATURE GREATER THAN 101.5 08/30/25 14:00 09/29/25 13:59 UNV Acetaminophen (TYLenol 325MG TAB) 650 mg Q6H PRN PO MILD PAIN (1-3) 08/30/25 14:00 09/29/25 13:59 UNV Ampicillin Sodium/ Sulbactam Sodium 100 ml @ 200 mls/hr Q6H IV 08/30/25 20:00 09/06/25 20:00 Dextrose (D50w) 50 ml AD PRN IV HYPOGLYCEMIA PROTOCOL 08/30/25 14:00 09/29/25 13:59 UNV Glucagon (Glucagon 1mg Kit) 1 mg AD PRN IM HYPOGLYCEMIA PROTOCOL 08/30/25 14:00 09/29/25 13:59 UNV Insulin Human Regular (humuLIN R 100 UNIT/ML 3ML) INSULIN SLIDING SCAL... ACHS SQ 08/30/25 16:30 09/29/25 16:29 UNV Magnesium Sulfate 50 ml @ 0 mls/hr PROTOCOL PRN IV MAGNESIUM PROTOCOL 08/30/25 14:00 09/29/25 13:59 UNV Ondansetron HCl (zoFRAN 4MG INJ) 4 mg Q6H PRN IVP NAUSEA/VOMITING 08/30/25 14:00 09/29/25 13:59 UNV DIAGNOSTICS / RADIOLOGY: [ ] ASSESSMENT: [Intractable abdominal pain, POA Urinary tract infection, POA Choledocholithiasis, POA Rule out cholangitis, POA ] Hyperglycemia with diabetes mellitus type 2, POA Elevated total bilirubin, POA PLAN: [Patient to medical telemetry floor Patient can have clear liquid diet Patient will be started with IV antibiotic with Unasyn every 8 hours Patient continue with gentle IV fluids with NS at 75 mL/hour Patient to check a.c. and HS glucometer and insulin sliding scale Continue with supportive care with nausea/vomiting/pain management We will consult underground repairer are: Patient has scheduled ERCP on 09/01/2025 We will order complete abdominal ultrasound We will repeat labs tomorrow including LFTs GI and DVT prophylaxis Discussed plan with Dr. Aggarwal, above plan was formulated Full code ADVANCED CARE PLANNING 1. Which of the following were discussed? Hospice Care - Yes / No Therapeutic options - Yes / No Advance Directives - Yes / No Other discussions - 2. Discussed with who? Patient 3. Voluntary nature of this service was explained to the patient? Yes / No 4. Amount of time spent - _20 mins 5. Reviewed by Physician? (if this service was performed by NPP) Yes / No ADDENDUM: 1700H- I SPOKE WITH DR. MAO TO INFORM HER REGARDING THIS PATIENT'S ADMISSION, AND PLANS FOR AN ERCP FOR Monday09/01/2025, DISCUSSED THE CASE WITH HER AND SHE RECOMMENDED TO KEEP PATIENT NPO AFTER MIDNIGHT ON MONDAY, FOR PLANS OF ERCP Monday09/01/2025. ATTESTATION BY PHYSICIAN I have seen and examined the patient. I reviewed the documentation, medical decision making, and treatment plan as noted by the mid-level provider above. I agree with the findings and plan of care. XIMENA AGGARWAL MD,[facility] Aug 30, 2025 14:18
--- NOTE | 2025-08-30 14:45 | NUR ---
REPORT GIVEN TO MERLIN
[2025-08-30 15:15] VITALS: BP 132/62; PULSE 73; RESP 19; TEMP 97.9
[2025-08-30] MEDS: 0.9%NACL 1000ML 1,000 ML IV SCH (15:18)
[2025-08-30] MEDS: AMP/SULBAC 3GM+NS 100ML 100 ML IV SCH (20:08)
[2025-08-30 20:10] VITALS: BP 137/71; PULSE 72; RESP 18; TEMP 98.4; O2SAT 99
--- NOTE | 2025-08-30 20:10 | NUR ---
MEDS SHIFT ASSESSMENT DONE, PLEASE REFER TO CHART. DUE MEDS ADMINISTERED, TOLERATED WELL. KEPT RESTED AND COMFORTABLE IN BED. CALL LIGHT WITHIN REACH. FAMILY AT BEDSIDE.
--- NOTE | 2025-08-30 22:59 | HMCIMG ---
EXAM: Complete Abdominal Ultrasound HISTORY: Abdominal pain and urinary tract infection. Prior imaging available for review. TECHNIQUE: Real-time grayscale and color Doppler ultrasound evaluation of the abdomen was performed. COMPARISON: Prior abdominal ultrasound dated July 29, [address] abdomen and pelvis dated July 25, 2025. FINDINGS: LIVER: The liver measures approximately 15 cm in craniocaudal dimension. Hepatic parenchyma demonstrates mildly increased echogenicity, suggestive of mild hepatic steatosis. No focal hepatic mass is identified. The main portal vein is patent with hepatopetal flow measuring approximately 14 cm/s. There is persistent intrahepatic biliary ductal dilatation measuring up to approximately 0.5 cm, similar to the prior examination. GALLBLADDER: The gallbladder is surgically absent. Previously noted gallbladder distention, cholelithiasis, sludge, and sonographic findings of cholecystitis are no longer present. BILIARY SYSTEM: The common bile duct measures approximately 5 mm in diameter, decreased compared with the prior study which measured up to 12 mm. No intrahepatic or extrahepatic biliary ductal dilatation is identified. PANCREAS: The pancreas is visualized and demonstrates normal size, contour, and echotexture without focal abnormality or ductal dilatation. AORTA AND IVC: The abdominal aorta measures approximately 2.8 cm proximally, 2 cm at the mid portion, and 1.5 cm distally, without aneurysmal dilatation. The inferior vena cava is patent. RIGHT KIDNEY: The right kidney measures approximately 8.3 x 5 x 3.3 cm and demonstrates normal cortical thickness and echogenicity, similar to the prior examination. No hydronephrosis or renal calculus is identified. LEFT KIDNEY: The left kidney measures approximately 8.4 x 5.1 x 3.8 cm. Cortical thickness and echogenicity are preserved. No hydronephrosis, renal calculus, or focal renal mass is identified. SPLEEN: The spleen measures approximately 13 cm in length, mildly enlarged. No focal splenic lesion is identified. ASCITES: No free fluid is identified. IMPRESSION: * Interval cholecystectomy with resolution of previously seen cholelithiasis, gallbladder distention, and cholecystitis. * Decreased caliber of the common bile duct with persistent mild intrahepatic biliary ductal dilatation measuring up to 0.5 cm. * Mild hepatic steatosis, similar to prior examinations. * Mild splenomegaly. * Normal sonographic appearance of the pancreas and kidneys. * No sonographic evidence of ascites. RECOMMENDATIONS: Per ACR Appropriateness Criteria, correlation with liver function tests is recommended given persistent intrahepatic biliary ductal dilatation. Further evaluation with MRCP may be considered if there is clinical or laboratory evidence of biliary obstruction or if symptoms persist. /[place]
[2025-08-31] VITALS (8 sets, daily range): BP systolic 130–151; BP diastolic 71–83; PULSE 74–82; RESP 18–19; TEMP 97.9–98.5; O2SAT 98
--- NOTE | 2025-08-31 05:09 | NUR ---
ROUNDS PT SLEPT AT INTERVALS DURING THE SHIFT. NO DISTRESS NOTED. KEPT RESTED AND COMFORTABLE IN BED. CALL LIGHT WITHIN REACH. FOR MORE CARE.
[2025-08-31 06:02] LABS: NUCLEATED RED BLOOD CELLS 0.0 % (0.0-0.19); PLATELET COUNT (AUTO) 118.0 K/uL (130-400); RED BLOOD CELL COUNT(AUTO) 3.71 MIL/uL (4.00-5.50); RED CELL DISTRIBUTION WIDTH 13.2 % (11.0-15.5); WHITE BLOOD COUNT (AUTO) 5.5 K/uL (4.8-10.8)
[2025-08-31 06:22] LABS: ASPARTATE AMINOTRANSFERASE 38.0 U/L (10-37); CREATININE 0.7 mg/dL (0.5-1.0); GLOMERULAR FILTR. RATE CALC 94.0 mL/min (>90); GLUCOSE,RANDOM 104.0 mg/dL (70-105); SODIUM SERUM 141.0 mmol/L (136-145); TOTAL PROTEIN, SERUM 5.8 g/dL (6.0-8.3); UREA NITROGEN, BLOOD 9.0 mg/dL (7-18)
[2025-08-31] MEDS: MAGNESIUM 2GM PREMIX 50ML 50 ML IV PRN (06:32)
--- NOTE | 2025-08-31 08:35 | PN ---
[facility] PROGRESS NOTE Date of Service: Aug 31, 2025 Time of Service: 08:34 SUBJECTIVE: [ ] This is 70 year old female with past medical history of diabetes mellitus, hypertension, hyperlipidemia and hypothyroidism who presented to the emergency department with complaints of abdominal pain and epigastric pain that started midnight on . Patient stated that she also had some associated chills and subjective low-grade fever. Patient was recently admitted at [facility] back in [id number] for which patient was then found with choledocholithiasis and acute cholecystitis for which she had a laparoscopic cholecystectomy done by Dr. Plaza. During that admission, she was told to have a stone in the CBD and an ERCP was done but was unsuccessful but they rescheduled for another ERCP for September 01, 2025 but the patient came to the emergency early this morning due to persistent/severe abdominal and epigastric pain. Patient denies any nausea vomiting or diarrhea. Patient stated that she would still have some discomfort after she eats but has not had a full meal in the last 24 hours due to her abdominal pain. In the emergency department, her initial vitals were temperature 97.5 F, pulse 81, respiratory rate 20, blood pressure 144/82, pulse oximetry 99% on room air. Laboratory data reviewed, hematology is fairly unremarkable, chemistry showed random glucose of 142, total bilirubin of 1.6, AST 66, ALT 70, alkaline phosphatase 255, albumin 3.2. Was referred to the hospitalist for further evaluation and management. ] 08/31/25 patient is seen and examined. He is scheduled for ERCP in a.m.. Patient reports no fevers chills overnight. Primary nurse reports no events overnight REVIEW OF SYSTEMS CONSTITUTIONAL: Denies fevers, chills, or night sweats. No unintentional weight loss reported. NEUROLOGICAL: Denies headache, amaurosis fugax, motor weakness, sensory deficit, vertigo/spinning sensation, gait abnormalities, or tremors. ENT: No hearing loss, otalgia, otorrhea, rhinitis, rhinorrhea, hoarseness, or sore throat. CARDIOVASCULAR: Denies any exertional angina, dyspnea on exertion, orthopnea, paroxysmal nocturnal dyspnea, palpitations, life-threatening arrhythmias, claudication. PULMONARY: Denies any shortness of breath, cough, phlegm/sputum, hemoptysis, pleuritic chest pain. SLEEP: Denies morning headaches, daytime somnolence or napping. Denies difficulty falling asleep, staying asleep, waking from sleep. Denies knowledge of snoring. GASTROINTESTINAL: Denies any type of dysphagia to either liquids or solids. Denies nausea, vomiting, pyrosis, early satiety, abdominal pain, diarrhea, constipation, or changes in stool consistency or caliber. Denies coffee-ground emesis, hematemesis, hematochezia, or melanotic stools. GENITOURINARY: Denies frequency, urgency, nocturia, hematuria or incontinence (Storage/Irritative symptoms.) Low urinary stream, straining to void, urinary intermittency or hesitancy, splitting of the voiding stream, terminal dribbling. ENDOCRINOLOGIC: Denies polyuria, polydipsia, polyphagia or heat/cold intolerances. HEMATOLOGIC: Denies thrombophilia/previous clots, or coagulopathy/bleeding disorders. ONCOLOGIC: Denies personal history of malignancy. DERMATOLOGIC: Denies rashes or pruritus. PSYCHIATRIC: Denies any suicidal or homicidal ideation. Denies hallucinations. PHYSICAL EXAM GENERAL APPEARANCE: The patient is awake, alert, and oriented, in no acute cardiopulmonary distress. NEUROLOGICAL: Cranial nerves II-XII grossly intact. Motor is 5/5 in bilateral upper and lower extremities proximal to distal. No sensory deficits. HEENT: Face is symmetric. Pupils are equal and reactive. Extraocular movements are intact. NECK: Supple. No JVD. No thyromegaly. No submental, submandibular, pre- /postauricular, occipital or supraclavicular lymphadenopathy. CHEST: Normal chest expansion. No Telemetry. LUNGS: Absence of any rales, rhonchi or any wheezing. CARDIOVASCULAR: Regular. S1 and S2 normal. No appreciable rubs, murmurs or gallops. ABDOMEN: Soft, nontender, and nondistended. There is no rebound, voluntary guarding, or rigidity. : Deferred. No Madden. EXTREMITIES: Non-edematous and not cyanotic. No clubbing. Good capillary refill. SKIN: No skin breakdown. Vital Signs (last 8hr) Date Time Temp Pulse Resp B/P (MAP) Pulse Ox O2 Delivery O2 Flow Rate FiO2 08/31/25 03:56 98.4 77 18 130/71 99 Room Air LABS: Laboratory: Test 08/31/25 05:53 08/31/25 05:28 08/30/25 11:07 08/30/25 10:50 Range/Units White Blood Count 5.5 4.8-10.8 K/uL Red Blood Count 3.71 L 4.00-5.50 MIL/uL Hemoglobin 11.8 L 12.0-16.0 g/dL Hematocrit 35.5 L 36-48 % Mean Corpuscular Volume 95.7 79-99 fL Mean Corpuscular Hemoglobin 31.8 27.0-33.0 pg Mean Corpuscular Hemoglobin Concent 33.2 32.0-36.0 g/dL Red Cell Distribution Width 13.2 11.0-15.5 % Platelet Count 118 #L 130-400 K/uL Mean Platelet Volume 10.4 7.5-10.5 fL Nucleated Red Blood Cells 0.0 0.0-0.19 % Sodium Level 141 136-145 mmol/L Potassium Level 3.3 L 3.5-5.1 mmol/L Chloride Level 106 101-111 mmol/L Carbon Dioxide Level 27 21-32 mmol/L Blood Urea Nitrogen 9 7-18 mg/dL Creatinine 0.7 0.5-1.0 mg/dL Glomerular Filtration Rate Calc 94 >90 mL/min Random Glucose 104 70-105 mg/dL Total Calcium 8.2 L 8.5-10.1 mg/dL Magnesium Level 1.70 L 1.80-2.40 mg/dL Total Bilirubin 0.9 # 0.2-1.0 mg/dL Direct Bilirubin 0.4 H 0.0-0.3 mg/dL Aspartate Amino Transf (AST/SGOT) 38 H 10-37 U/L Alanine Aminotransferase (ALT/SGPT) 47 # 12-78 U/L Alkaline Phosphatase 195 H 50-136 U/L Total Protein 5.8 #L 6.0-8.3 g/dL Albumin 2.5 #L 3.5-5.0 g/dL Whole Blood Glucose 110 70-110 MG/DL Urine Color YELLOW YELLOW Urine Appearance HAZY CLEAR Urine pH 6.0 5.0-8.0 Urine Specific [place] 1.015 1.001-1.031 Urine Protein NEGATIVE NEGATIVE mg/dL Urine Glucose (UA) NEGATIVE NEGATIVE mg/dL Urine Ketones NEGATIVE NEGATIVE mg/dL Urine Occult Blood NEGATIVE NEGATIVE Urine Nitrate NEGATIVE NEGATIVE Urine Bilirubin NEGATIVE NEGATIVE mg/dL Urine Urobilinogen 2.0 H 0.2-1.0 mg/dL Urine Leukocyte Esterase 250 H NEGATIVE Vinicio/uL Urine RBC 0-1 0-1 /HPF Urine WBC 11-25 H 0-1 /HPF Urine Squamous Epithelial Cells MOD 0-2 /HPF Urine Bacteria FEW None Seen /HPF Immature Granulocyte % (Auto) 0.4 0-1 % Neutrophils (%) (Auto) 66.6 40.0-77.0 % Lymphocytes (%) (Auto) 17.9 L 21.0-51.0 % Monocytes (%) (Auto) 11.7 3.0-13.0 % Eosinophils (%) (Auto) 2.6 0.0-8.0 % Basophils (%) (Auto) 0.8 0.0-5.0 % Neutrophils # (Auto) 3.5 1.8-7.7 K/uL Lymphocytes # (Auto) 1.0 1.0-4.8 K/uL Monocytes # (Auto) 0.6 0.1-1.0 K/uL Eosinophils # (Auto) 0.14 0.00-0.70 K/uL Basophils # (Auto) 0.04 0.00-0.20 K/uL Absolute Immature Granulocyte (auto 0.02 0-1 K/uL Lipase 26 16-77 U/L Current Medications Medications (Trade) Dose Ordered Sig/Cary Route PRN Reason Start Time Stop Time Status Last Admin Dose Admin Acetaminophen (TYLenol 325MG TAB) 650 mg Q4H PRN PO TEMPERATURE GREATER THAN 101.5 08/30/25 14:00 09/29/25 13:59 Acetaminophen (TYLenol 325MG TAB) 650 mg Q6H PRN PO MILD PAIN (1-3) 08/30/25 14:00 09/29/25 13:59 Ampicillin Sodium/ Sulbactam Sodium 100 ml @ 200 mls/hr Q6H IV 08/30/25 20:00 09/06/25 20:00 08/31/25 08:23 200 MLS/HR Dextrose (D50w) 50 ml AD PRN IV HYPOGLYCEMIA PROTOCOL 08/30/25 14:00 09/29/25 13:59 Glucagon (Glucagon 1mg Kit) 1 mg AD PRN IM HYPOGLYCEMIA PROTOCOL 08/30/25 14:00 09/29/25 13:59 Insulin Human Regular (humuLIN R 100 UNIT/ML 3ML) INSULIN SLIDING SCAL... ACHS SQ 08/30/25 16:30 09/29/25 16:29 Magnesium Sulfate 50 ml @ 0 mls/hr PROTOCOL PRN IV MAGNESIUM PROTOCOL 08/30/25 14:00 09/29/25 13:59 08/31/25 06:32 25 MLS/HR Ondansetron HCl (zoFRAN 4MG INJ) 4 mg Q6H PRN IVP NAUSEA/VOMITING 08/30/25 14:00 09/29/25 13:59 Pantoprazole Sodium (PROTonix 40MG INJ) 40 mg BID IVP 08/30/25 21:00 09/29/25 20:59 08/31/25 08:23 40 MG Sodium Chloride 1,000 ml @ 75 mls/hr [id number] IV 08/30/25 14:00 09/29/25 13:59 08/31/25 05:09 75 MLS/HR DIAGNOSTICS / RADIOLOGY: [ ] ASSESSMENT: [Intractable abdominal pain, POA Urinary tract infection, POA Choledocholithiasis, POA Rule out cholangitis, POA ] Hyperglycemia with diabetes mellitus type 2, POA Elevated total bilirubin, POA PLAN: [Patient to medical telemetry floor Clear liquid diet NPO after midnight Patient will be started with IV antibiotic with Unasyn every 8 hours Patient continue with gentle IV fluids with NS at 75 mL/hour Patient to check a.c. and HS glucometer and insulin sliding scale Continue with supportive care with nausea/vomiting/pain management We will consult day camp unit leader are: Patient has scheduled ERCP on 09/01/2025 We will order complete abdominal ultrasound We will repeat labs tomorrow including LFTs GI and DVT prophylaxis Discussed plan with Dr. Gracia, above plan was formulated Full code ATTESTATION BY PHYSICIAN I have seen and examined the patient. I reviewed the documentation, medical decision making, and treatment plan as noted by the mid-level provider above. I agree with the findings and plan of care. XIMENA GRACIA MD, [facility] Aug 31, 2025 08:35
[2025-08-31] MEDS ORDERED: MAGNESIUM 2GM PREMIX 50ML 50 ML IV SCH (09:00)
[2025-08-31] MEDS: PoTASSium chloRIDE 20MEQ ER 20 MEQ ERTAB PO ONE (09:48)
[2025-08-31] MEDS: amLODIPine 2.5 MG TAB PO SCH ×2 (09:49→20:10)
--- NOTE | 2025-08-31 16:38 | NUR ---
DCP: INITIAL ASSESSMENT Patient lives with spouse, Perez Santana. She has no home services. Patient has glucometer at home but uses no insulin. Patient is able to complete ADLs independently and drives. PCP is Dr. Tod Alcantar. Pharmacy is [facility]. Patient voiced no safety concerns regarding returning home and states she has no difficulty with housing or buying food. DCP is home.
--- NOTE | 2025-08-31 20:10 | NUR ---
MEDS SHIFT ASSESSMENT DONE, PLEASE REFER TO CHART. DUE MEDS ADMINISTERED, TOLERATED WELL. KEPT RESTED AND COMFORTABLE IN BED. CALL LIGHT WITHIN REACH. INSTRUCTED TO BE NPO POST [place] FOR ERCP IN AM. PT VERBALIZES UNDERSTANDING. CALL LIGHT WITHIN REACH.
[2025-09-01] VITALS (27 sets, daily range): BP systolic 132–161; BP diastolic 63–101; PULSE 63–84; RESP 16–20; TEMP 96.9–98.3; O2SAT 92–98
[2025-09-01 05:01] LABS: IMMATURE GRANULOCYTE ABSOLUTE 0.01 K/uL (0-1); NUCLEATED RED BLOOD CELLS 0.0 % (0.0-0.19); PLATELET COUNT (AUTO) 126 K/uL (130-400); RED BLOOD CELL COUNT(AUTO) 3.55 MIL/uL (4.00-5.50); RED CELL DISTRIBUTION WIDTH 13.2 % (11.0-15.5); WHITE BLOOD COUNT (AUTO) 4.1 K/uL (4.8-10.8)
[2025-09-01 05:26] LABS: ASPARTATE AMINOTRANSFERASE 32.0 U/L (10-37); CREATININE 0.8 mg/dL (0.5-1.0); GLOMERULAR FILTR. RATE CALC 80.0 mL/min (>90); GLUCOSE,RANDOM 87.0 mg/dL (70-105); SODIUM SERUM 141.0 mmol/L (136-145); TOTAL PROTEIN, SERUM 5.6 g/dL (6.0-8.3); UREA NITROGEN, BLOOD 8.0 mg/dL (7-18)
--- NOTE | 2025-09-01 05:53 | NUR ---
ROUNDS PT HAD ALREADY WASHED AND SPONGE BATHE HERSELF. PLACED BACK ON IVF OF NS AT 75CC/HR. DUE SYNTHROID DOSE GIVEN WITH SIPS OF WATER. KEPT NPO OTHERWISE. KEPT RESTED IN BED. FOR MORE CARE.
--- NOTE | 2025-09-01 08:19 | NUR ---
PATIENT HAS SCHEDULED MRCP LATER THIS MORNING. SPOKE TO RADIOLOGY AND THEY SAID IT WAS OKAY FOR PATIENT TO TAKE MORNING MEDICATIONS WITH SMALL SIP OF WATER
[2025-09-01] MEDS ORDERED: IOHEXOL-350 50ML VIAL IV ONE (09:01)
--- NOTE | 2025-09-01 10:57 | CONS ---
GASTROENTEROLOGY CONSULTATION NOTE Date of Consultation: Sep 01, 2025 Time of Consultation: 10:56 History of Present Illness: This is a 70-year-old female patient with past medical history for hypertension, hyperlipidemia, diabetes mellitus, and hypothyroidism who presents to the emergency room with epigastric pain x2 days. Abdominal ultrasound showing decreased caliber of the common bile duct with persistent mild intrahepatic biliary ductal dilation measuring up to 0.[address] scan on 07/25/2025 showing 0.6 cm calculus present at the ampullary end. Patient's WBC of 4.1, hemoglobin 11.5, platelets 126. Chemistries significant for calcium of 8.0, total bilirubin of 0.7, direct bilirubin elevated at 0.4, AST 32, ALT 39, alkaline phosphatase of 178, total protein 5.6, and albumin 2.4. Plan for ERCP today. Review of Systems: CONSTITUTIONAL: No malaise or change in sensation of wellbeing. ENMT: No rhinorrhea, otorrhea, sinus pain, ear ache. CARDIOVASCULAR: No angina, palpitations, orthopnea or paroxysmal dyspnea. RESPIRATORY: No SOB. GASTROINTESTINAL: No abdominal pain, nausea, vomiting, diarrhea, hematemesis, melena or change in the patient's habitual bowel movements consistency/number. GENITOURINARY: No dysuria, hematuria or change in bladder continence. MUSCULOSKELETAL: No new muscle pain or decrease in muscular strength. No new joint swelling, redness or tenderness. SKIN: No new rash. Past Medical History: [ Diabetes, hypertension, hyperlipidemia and hypothyroidism ] PAST SURGICAL HISTORY: [ x2 and left breast lumpectomy ] PAST SOCIAL HISTORY: [ Patient lives with . Patient denies alcohol tobacco and recreational drug use] FAMILY HISTORY: [ Noncontributory ] Coded Allergies: cefprozil (Unverified Allergy, Unknown, 03/06/25) meperidine (Unverified Allergy, Unknown, 03/06/25) Physical Exam: GEN: Awake, alert, oriented in person, time and place, and in no acute distress. HEENT: No rhinorrhea. Oral mucosa is pink, moist and within normal limits. CHEST: Lung auscultation revealed normal breath sounds bilaterally. CARDIAC:Heart sounds are regular. ABD: Soft, non-tender and not distended. No peritoneal signs on palpation. Normal bowel sounds. EXT: No cyanosis or clubbing. No edema. SKIN: Intact. No rashes. NEURO: Alert and oriented to name, place and person.No focal motor deficits. Normal speech. Vital Sign (Last 24 Hours) 08/31/25 09/01/25 20:10 08:00 Temp 98.1 Pulse 67 Resp 20 B/P (MAP) 143/69 Pulse Ox 98 O2 Delivery Room Air O2 Flow Rate 0 FiO2 21 Intake & Output (last 24hrs) 08/31/25 08/31/25 09/01/25 15:00 23:00 07:00 Intake Total 240 ml 1083.0 ml Output Total 500 ml Balance 240 ml 583.0 ml Laboratory: [ ] Laboratory: Test 09/01/25 05:20 09/01/25 04:55 08/31/25 05:53 08/30/25 11:07 Range/Units Whole Blood Glucose 90 70-110 MG/DL White Blood Count 4.1 #L 4.8-10.8 K/uL Red Blood Count 3.55 L 4.00-5.50 MIL/uL Hemoglobin 11.5 L 12.0-16.0 g/dL Hematocrit 34.4 L 36-48 % Mean Corpuscular Volume 96.9 79-99 fL Mean Corpuscular Hemoglobin 32.4 27.0-33.0 pg Mean Corpuscular Hemoglobin Concent 33.4 32.0-36.0 g/dL Red Cell Distribution Width 13.2 11.0-15.5 % Platelet Count 126 L 130-400 K/uL Mean Platelet Volume 9.9 7.5-10.5 fL Immature Granulocyte % (Auto) 0.2 0-1 % Neutrophils (%) (Auto) 54.3 40.0-77.0 % Lymphocytes (%) (Auto) 28.1 21.0-51.0 % Monocytes (%) (Auto) 11.1 3.0-13.0 % Eosinophils (%) (Auto) 5.1 0.0-8.0 % Basophils (%) (Auto) 1.2 0.0-5.0 % Neutrophils # (Auto) 2.2 1.8-7.7 K/uL Lymphocytes # (Auto) 1.2 1.0-4.8 K/uL Monocytes # (Auto) 0.5 0.1-1.0 K/uL Eosinophils # (Auto) 0.21 0.00-0.70 K/uL Basophils # (Auto) 0.05 0.00-0.20 K/uL Absolute Immature Granulocyte (auto 0.01 0-1 K/uL Nucleated Red Blood Cells 0.0 0.0-0.19 % Sodium Level 141 136-145 mmol/L Potassium Level 3.9 3.5-5.1 mmol/L Chloride Level 108 101-111 mmol/L Carbon Dioxide Level 28 21-32 mmol/L Blood Urea Nitrogen 8 7-18 mg/dL Creatinine 0.8 0.5-1.0 mg/dL Glomerular Filtration Rate Calc 80 >90 mL/min Random Glucose 87 70-105 mg/dL Total Calcium 8.0 L 8.5-10.1 mg/dL Magnesium Level 2.10 1.80-2.40 mg/dL Total Bilirubin 0.7 # 0.2-1.0 mg/dL Aspartate Amino Transf (AST/SGOT) 32 10-37 U/L Alanine Aminotransferase (ALT/SGPT) 39 12-78 U/L Alkaline Phosphatase 178 H 50-136 U/L Total Protein 5.6 L 6.0-8.3 g/dL Albumin 2.4 L 3.5-5.0 g/dL Direct Bilirubin 0.4 H 0.0-0.3 mg/dL Urine Color YELLOW YELLOW Urine Appearance HAZY CLEAR Urine pH 6.0 5.0-8.0 Urine Specific Terral 1.015 1.001-1.031 Urine Protein NEGATIVE NEGATIVE mg/dL Urine Glucose (UA) NEGATIVE NEGATIVE mg/dL Urine Ketones NEGATIVE NEGATIVE mg/dL Urine Occult Blood NEGATIVE NEGATIVE Urine Nitrate NEGATIVE NEGATIVE Urine Bilirubin NEGATIVE NEGATIVE mg/dL Urine Urobilinogen 2.0 H 0.2-1.0 mg/dL Urine Leukocyte Esterase 250 H NEGATIVE Vinicio/uL Urine RBC 0-1 0-1 /HPF Urine WBC 11-25 H 0-1 /HPF Urine Squamous Epithelial Cells MOD 0-2 /HPF Urine Bacteria FEW None Seen /HPF Current Medications Medications (Trade) Dose Ordered Sig/Cary Route PRN Reason Start Time Stop Time Status Last Admin Dose Admin Acetaminophen (TYLenol 325MG TAB) 650 mg Q4H PRN PO TEMPERATURE GREATER THAN 101.5 08/30/25 14:00 09/29/25 13:59 Acetaminophen (TYLenol 325MG TAB) 650 mg Q6H PRN PO MILD PAIN (1-3) 08/30/25 14:00 09/29/25 13:59 Amlodipine Besylate (NorvASC 2.5MG TAB) 2.5 mg DAILY PO 08/31/25 09:00 08/31/25 10:16 DC Amlodipine Besylate (NorvASC 2.5MG TAB) 2.5 mg HS PO 08/31/25 21:00 09/30/25 20:59 08/31/25 20:10 2.5 MG Ampicillin Sodium/ Sulbactam Sodium 100 ml @ 200 mls/hr Q6H IV 08/30/25 20:00 09/06/25 20:00 09/01/25 08:14 200 MLS/HR Dextrose (D50w) 50 ml AD PRN IV HYPOGLYCEMIA PROTOCOL 08/30/25 14:00 09/29/25 13:59 Glucagon (Glucagon 1mg Kit) 1 mg AD PRN IM HYPOGLYCEMIA PROTOCOL 08/30/25 14:00 09/29/25 13:59 Hydrochlorothiazide (hydroCHLOROthiazide 25MG) 50 mg DAILY PO 09/01/25 09:00 10/01/25 08:59 09/01/25 08:14 50 MG Insulin Human Regular (humuLIN R 100 UNIT/ML 3ML) INSULIN SLIDING SCAL... ACHS SQ 08/30/25 16:30 09/29/25 16:29 Levothyroxine Sodium (SYNTHroid 112MCG TAB) 112 mcg SYN PO 09/01/25 06:30 10/01/25 06:29 09/01/25 05:53 112 MCG Losartan Potassium (CozAAR 100MG TAB) 100 mg DAILY PO 08/31/25 09:00 09/30/25 08:59 09/01/25 08:15 100 MG Magnesium Sulfate 50 ml @ 0 mls/hr PROTOCOL IV 08/31/25 09:00 09/30/25 08:59 Magnesium Sulfate 50 ml @ 0 mls/hr PROTOCOL PRN IV MAGNESIUM PROTOCOL 08/30/25 14:00 08/31/25 08:58 DC 08/31/25 06:32 25 MLS/HR Metoprolol Succinate (TopROL XL) 100 mg DAILY PO 09/01/25 09:00 08/31/25 10:16 DC Metoprolol Succinate (TopROL XL) 100 mg HS PO 08/31/25 21:00 09/30/25 20:59 08/31/25 20:10 100 MG Ondansetron HCl (zoFRAN 4MG INJ) 4 mg Q6H PRN IVP NAUSEA/VOMITING 08/30/25 14:00 09/29/25 13:59 Pantoprazole Sodium (PROTonix 40MG INJ) 40 mg BID IVP 08/30/25 21:00 09/29/25 20:59 09/01/25 08:14 40 MG Sodium Chloride 1,000 ml @ 75 mls/hr [id number] IV 08/30/25 14:00 09/29/25 13:59 09/01/25 03:13 75 MLS/HR Diagnostics / Radiology: [COPY/PASTE HERE IF NO REPORTS PLEASE DELETE SECTION] Assessment: [ Epigastric pain Abnormal findings on imaging of abdominal organs. Choledocholithiasis Hypertension Diabetes Mellitus ] Plan: Case discussed with Dr. Connor [NPO Plan for ERCP today Pain meds as needed. Avoid NSAIDS Please call with questions, concerns, and change in clinical status Thank you for this consult ] DANICA LAWTON [employer] Sep 01, 2025 10:57
--- NOTE | 2025-09-01 11:29 | PN ---
[facility] PROGRESS NOTE Date of Service: Sep 01, 2025 Time of Service: 11:24 SUBJECTIVE: [ ] This is 70 year old female with past medical history of diabetes mellitus, hypertension, hyperlipidemia and hypothyroidism who presented to the emergency department with complaints of abdominal pain and epigastric pain that started midnight on . Patient stated that she also had some associated chills and subjective low-grade fever. Patient [place] [facility] [place] [id number] which patient was then found with choledocholithiasis and acute cholecystitis for which she had a laparoscopic cholecystectomy done by Dr. Plaza. During that admission, she was told to have a stone in the CBD and an ERCP was done but was unsuccessful but they rescheduled for another ERCP for September 01, 2025 but the patient came to the emergency early this morning due to persistent/severe abdominal and epigastric pain. Patient denies any nausea vomiting or diarrhea. Patient stated that she would still have some discomfort after she eats but has not had a full meal in the last 24 hours due to her abdominal pain. In the emergency department, her initial vitals were temperature 97.5 F, pulse 81, respiratory rate 20, blood pressure 144/82, pulse oximetry 99% on room air. Laboratory data reviewed, hematology is fairly unremarkable, chemistry showed random glucose of 142, total bilirubin of 1.6, AST 66, ALT 70, alkaline phosphatase 255, albumin 3.2. Was referred to the hospitalist for further evaluation and management. ] 08/31/25 patient is seen and examined. He is scheduled for ERCP in a.m.. Patient reports no fevers chills overnight. Primary nurse reports no events overnight 09/01/2025 patient is lying in bed waiting for her procedure ERCP to be done this afternoon. Urine cultures were contaminated patient has been afebrile no leukocytosis. Discussed patient's if GI clears she is okay to be discharged later on today. REVIEW OF SYSTEMS CONSTITUTIONAL: Denies fevers, chills, or night sweats. No unintentional weight loss reported. NEUROLOGICAL: Denies headache, amaurosis fugax, motor weakness, sensory deficit, vertigo/spinning sensation, gait abnormalities, or tremors. ENT: No hearing loss, otalgia, otorrhea, rhinitis, rhinorrhea, hoarseness, or sore throat. CARDIOVASCULAR: Denies any exertional angina, dyspnea on exertion, orthopnea, paroxysmal nocturnal dyspnea, palpitations, life-threatening arrhythmias, claudication. PULMONARY: Denies any shortness of breath, cough, phlegm/sputum, hemoptysis, pleuritic chest pain. SLEEP: Denies morning headaches, daytime somnolence or napping. Denies diffi culty falling asleep, staying asleep, waking from sleep. Denies knowledge of snoring. GASTROINTESTINAL: Denies any type of dysphagia to either liquids or solids. Denies nausea, vomiting, pyrosis, early satiety, abdominal pain, diarrhea, constipation, or changes in stool consistency or caliber. Denies coffee-ground emesis, hematemesis, hematochezia, or melanotic stools. GENITOURINARY: Denies frequency, urgency, nocturia, hematuria or incontinence (Storage/Irritative symptoms.) Low urinary stream, straining to void, urinary intermittency or hesitancy, splitting of the voiding stream, terminal dribbling. ENDOCRINOLOGIC: Denies polyuria, polydipsia, polyphagia or heat/cold int olerances. HEMATOLOGIC: Denies thrombophilia/previous clots, or coagulopathy/bleeding disorders. ONCOLOGIC: Denies personal history of malignancy. DERMATOLOGIC: Denies rashes or pruritus. PSYCHIATRIC: Denies any suicidal or homicidal ideation. Denies hallucinations. PHYSICAL EXAM GENERAL APPEARANCE: The patient is awake, alert, and oriented, in no acute cardiopulmonary distress. NEUROLOGICAL: Cranial nerves II-XII grossly intact. Motor is 5/5 in bilateral upper and lower extremities proximal to distal. No sensory deficits. HEENT: Face is symmetric. Pupils are equal and reactive. Extraocular movements are intact. NECK: Supple. No JVD. No thyromegaly. No submental, submandibular, pre- /postauricular, occipital or supraclavicular lymphadenopathy. CHEST: Normal chest expansion. No Telemetry. LUNGS: Absence of any rales, rhonchi or any wheezing. CARDIOVASCULAR: Regular. S1 and S2 normal. No appreciable rubs, murmurs or gallops. ABDOMEN: Soft, nontender, and nondistended. There is no rebound, voluntary guarding, or rigidity. : Deferred. No Madden. EXTREMITIES: Non-edematous and not cyanotic. No clubbing. Good capillary refill. SKIN: No skin breakdown. Vital Signs (last 8hr) Date Time Temp Pulse Resp B/P (MAP) Pulse Ox O2 Delivery O2 Flow Rate FiO2 09/01/25 11:04 98 Room Air* 0 21 09/01/25 08:00 98.1 67 20 143/69 98 Room Air 09/01/25 03:56 98.1 71 18 132/63 99 Room Air LABS: Laboratory: Test 09/01/25 05:20 09/01/25 04:55 08/31/25 05:53 Range/Units Whole Blood Glucose 90 70-110 MG/DL White Blood Count 4.1 #L 4.8-10.8 K/uL Red Blood Count 3.55 L 4.00-5.50 MIL/uL Hemoglobin 11.5 L 12.0-16.0 g/dL Hematocrit 34.4 L 36-48 % Mean Corpuscular Volume 96.9 79-99 fL Mean Corpuscular Hemoglobin 32.4 27.0-33.0 pg Mean Corpuscular Hemoglobin Concent 33.4 32.0-36.0 g/dL Red Cell Distribution Width 13.2 11.0-15.5 % Platelet Count 126 L 130-400 K/uL Mean Platelet Volume 9.9 7.5-10.5 fL Immature Granulocyte % (Auto) 0.2 0-1 % Neutrophils (%) (Auto) 54.3 40.0-77.0 % Lymphocytes (%) (Auto) 28.1 21.0-51.0 % Monocytes (%) (Auto) 11.1 3.0-13.0 % Eosinophils (%) (Auto) 5.1 0.0-8.0 % Basophils (%) (Auto) 1.2 0.0-5.0 % Neutrophils # (Auto) 2.2 1.8-7.7 K/uL Lymphocytes # (Auto) 1.2 1.0-4.8 K/uL Monocytes # (Auto) 0.5 0.1-1.0 K/uL Eosinophils # (Auto) 0.21 0.00-0.70 K/uL Basophils # (Auto) 0.05 0.00-0.20 K/uL Absolute Immature Granulocyte (auto 0.01 0-1 K/uL Nucleated Red Blood Cells 0.0 0.0-0.19 % Sodium Level 141 136-145 mmol/L Potassium Level 3.9 3.5-5.1 mmol/L Chloride Level 108 101-111 mmol/L Carbon Dioxide Level 28 21-32 mmol/L Blood Urea Nitrogen 8 7-18 mg/dL Creatinine 0.8 0.5-1.0 mg/dL Glomerular Filtration Rate Calc 80 >90 mL/min Random Glucose 87 70-105 mg/dL Total Calcium 8.0 L 8.5-10.1 mg/dL Magnesium Level 2.10 1.80-2.40 mg/dL Total Bilirubin 0.7 # 0.2-1.0 mg/dL Aspartate Amino Transf (AST/SGOT) 32 10-37 U/L Alanine Aminotransferase (ALT/SGPT) 39 12-78 U/L Alkaline Phosphatase 178 H 50-136 U/L Total Protein 5.6 L 6.0-8.3 g/dL Albumin 2.4 L 3.5-5.0 g/dL Direct Bilirubin 0.4 H 0.0-0.3 mg/dL Current Medications Medications (Trade) Dose Ordered Sig/Cary Route PRN Reason Start Time Stop Time Status Last Admin Dose Admin Acetaminophen (TYLenol 325MG TAB) 650 mg Q4H PRN PO TEMPERATURE GREATER THAN 101.5 08/30/25 14:00 09/29/25 13:59 Acetaminophen (TYLenol 325MG TAB) 650 mg Q6H PRN PO MILD PAIN (1-3) 08/30/25 14:00 09/29/25 13:59 Amlodipine Besylate (NorvASC 2.5MG TAB) 2.5 mg DAILY PO 08/31/25 09:00 08/31/25 10:16 DC Amlodipine Besylate (NorvASC 2.5MG TAB) 2.5 mg HS PO 08/31/25 21:00 09/30/25 20:59 08/31/25 20:10 2.5 MG Ampicillin Sodium/ Sulbactam Sodium 100 ml @ 200 mls/hr Q6H IV 08/30/25 20:00 09/06/25 20:00 09/01/25 08:14 200 MLS/HR Dextrose (D50w) 50 ml AD PRN IV HYPOGLYCEMIA PROTOCOL 08/30/25 14:00 09/29/25 13:59 Glucagon (Glucagon 1mg Kit) 1 mg AD PRN IM HYPOGLYCEMIA PROTOCOL 08/30/25 14:00 09/29/25 13:59 Hydrochlorothiazide (hydroCHLOROthiazide 25MG) 50 mg DAILY PO 09/01/25 09:00 10/01/25 08:59 09/01/25 08:14 50 MG Insulin Human Regular (humuLIN R 100 UNIT/ML 3ML) INSULIN SLIDING SCAL... ACHS SQ 08/30/25 16:30 09/29/25 16:29 Levothyroxine Sodium (SYNTHroid 112MCG TAB) 112 mcg SYN PO 09/01/25 06:30 10/01/25 06:29 09/01/25 05:53 112 MCG Losartan Potassium (CozAAR 100MG TAB) 100 mg DAILY PO 08/31/25 09:00 09/30/25 08:59 09/01/25 08:15 100 MG Magnesium Sulfate 50 ml @ 0 mls/hr PROTOCOL IV 08/31/25 09:00 09/30/25 08:59 Magnesium Sulfate 50 ml @ 0 mls/hr PROTOCOL PRN IV MAGNESIUM PROTOCOL 08/30/25 14:00 08/31/25 08:58 DC 08/31/25 06:32 25 MLS/HR Metoprolol Succinate (TopROL XL) 100 mg DAILY PO 09/01/25 09:00 08/31/25 10:16 DC Metoprolol Succinate (TopROL XL) 100 mg HS PO 08/31/25 21:00 09/30/25 20:59 08/31/25 20:10 100 MG Ondansetron HCl (zoFRAN 4MG INJ) 4 mg Q6H PRN IVP NAUSEA/VOMITING 08/30/25 14:00 09/29/25 13:59 Pantoprazole Sodium (PROTonix 40MG INJ) 40 mg BID IVP 08/30/25 21:00 09/29/25 20:59 09/01/25 08:14 40 MG Sodium Chloride 1,000 ml @ 75 mls/hr [id number] IV 08/30/25 14:00 09/29/25 13:59 09/01/25 03:13 75 MLS/HR DIAGNOSTICS / RADIOLOGY: [ ] ASSESSMENT: [Intractable abdominal pain, POA Urinary tract infection, POA Choledocholithiasis, POA Rule out cholangitis, POA ] Hyperglycemia with diabetes mellitus type 2, POA Elevated total bilirubin, POA PLAN: [Patient to medical telemetry floor Procedure: ERCP today will follow recommendations from GI upon discharged recommendations continue with IV antibiotic with Unasyn every 8 hours will be deescalated to PO upon discharged Micro: urine cultures contaminated. NPO for procedure on IVF's NS at 75 ml/hr will be heplock today. Patient to check a.c. and HS glucometer and insulin sliding scale Continue with supportive care with nausea/vomiting/pain management monitor lfts am labs cbc, cmp mag replaced GI and DVT prophylaxis Discussed plan with Dr. Enrique Baumann above plan was formulated Full code ATTESTATION BY PHYSICIAN I have seen and examined the patient. I reviewed the documentation, medical decision making, and treatment plan as noted by the mid-level provider above. I agree with the findings and plan of care. LUIGI SORTO MD, [facility] Sep 01, 2025 11:29
[2025-09-01] MEDS ORDERED: NITR100C PO (11:35)
--- NOTE | 2025-09-01 11:40 | DS ---
Discharge Summary Hospital Course Summary: This is 70 year old female with past medical history of diabetes mellitus, hypertension, hyperlipidemia and hypothyroidism who presented to the emergency department with complaints of abdominal pain and epigastric pain that started midnight on . Patient stated that she also had some associated chills and subjective low-grade fever. Patient was recently admitted at [facility] back in [id number] for which patient was then found with choledocholithiasis and acute cholecystitis for which she had a laparoscopic cholecystectomy done by Dr. Plaza. During that admission, she was told to have a stone in the CBD and an ERCP was done but was unsuccessful but they rescheduled for another ERCP for September 01, 2025 but the patient came to the emergency early this morning due to persistent/severe abdominal and epigastric pain. Patient denies any nausea vomiting or diarrhea. Patient stated that she would still have some discomfort after she eats but has not had a full meal in the last 24 hours due to her abdominal pain. In the emergency department, her initial vitals were temperature 97.5 F, pulse 81, respiratory rate 20, blood pressure 144/82, pulse oximetry 99% on room air. Laboratory data reviewed, hematology is fairly unremarkable, chemistry showed random glucose of 142, total bilirubin of 1.6, AST 66, ALT 70, alkaline phosphatase 255, albumin 3.2. Was referred to the hospitalist for further evaluation and management. ] 08/31/25 patient is seen and examined. He is scheduled for ERCP in a.m.. Patient reports no fevers chills overnight. Primary nurse reports no events overnight 09/01/2025 patient is lying in bed waiting for her procedure ERCP to be done this afternoon. Urine cultures were contaminated patient has been afebrile no leukocytosis. Discussed patient's if GI clears she is okay to be discharged later on today. Amylase lipase were normal. GI cleared patient to be discharged and to follow- up as scheduled in GI clinic. Patient is clinically and hemodynamically stable for discharge. Procedure(s): REASON: ABD PAIN, ELEVATED LFT ORDERING PHYSICIAN: ALLEN PLUMMER PROCEDURE: ABDOMEN - US ABDOMINAL COMPLETE EXAM: Complete Abdominal Ultrasound HISTORY: Abdominal pain and urinary tract infection. Prior imaging available for review. TECHNIQUE: Real-time grayscale and color Doppler ultrasound evaluation of the abdomen was performed. COMPARISON: Prior abdominal ultrasound dated July 29, [address] abdomen and pelvis dated July 25, 2025. FINDINGS: LIVER: The liver measures approximately 15 cm in craniocaudal dimension. Hepatic parenchyma demonstrates mildly increased echogenicity, suggestive of mild hepatic steatosis. No focal hepatic mass is identified. The main portal vein is patent with hepatopetal flow measuring approximately 14 cm/s. There is persistent intrahepatic biliary ductal dilatation measuring up to approximately 0.5 cm, similar to the prior examination. GALLBLADDER: The gallbladder is surgically absent. Previously noted gallbladder distention, cholelithiasis, sludge, and sonographic findings of cholecystitis are no longer present. BILIARY SYSTEM: The common bile duct measures approximately 5 mm in diameter, decreased compared with the prior study which measured up to 12 mm. No intrahepatic or extrahepatic biliary ductal dilatation is identified. PANCREAS: The pancreas is visualized and demonstrates normal size, contour, and echotexture without focal abnormality or ductal dilatation. AORTA AND IVC: The abdominal aorta measures approximately 2.8 cm proximally, 2 cm at the mid portion, and 1.5 cm distally, without aneurysmal dilatation. The inferior vena cava is patent. RIGHT KIDNEY: The right kidney measures approximately 8.3 x 5 x 3.3 cm and demonstrates normal cortical thickness and echogenicity, similar to the prior examination. No hydronephrosis or renal calculus is identified. LEFT KIDNEY: The left kidney measures approximately 8.4 x 5.1 x 3.8 cm. Cortical thickness and echogenicity are preserved. No hydronephrosis, renal calculus, or focal renal mass is identified. SPLEEN: The spleen measures approximately 13 cm in length, mildly enlarged. No focal splenic lesion is identified. ASCITES: No free fluid is identified. IMPRESSION: * Interval cholecystectomy with resolution of previously seen cholelithiasis, gallbladder distention, and cholecystitis. * Decreased caliber of the common bile duct with persistent mild intrahepatic biliary ductal dilatation measuring up to 0.5 cm. * Mild hepatic steatosis, similar to prior examinations. * Mild splenomegaly. * Normal sonographic appearance of the pancreas and kidneys. * No sonographic evidence of ascites. RECOMMENDATIONS: Per ACR Appropriateness Criteria, correlation with liver function tests is recommended given persistent intrahepatic biliary ductal dilatation. Further evaluation with MRCP may be considered if there is clinical or laboratory evidence of biliary obstruction or if symptoms persist. /[place] Assessment/Plan: discharged dx's; [Intractable abdominal pain, POA Urinary tract infection, POA Choledocholithiasis, POA Rule out cholangitis, POA ] Hyperglycemia with diabetes mellitus type 2, POA Elevated total bilirubin, POA PLAN: ADMISSION DATE: 08/30/2025 DISCHARGE DATE: 09/01/2025 DISPOSITION: Home CONDITION: Stable STATION REPAIRER(S): GI FOLLOW UP APPOINTMENT(S): Dr Connor one wk; PCP: Dr Katharine Baron 2-3 days. PROCEDURES: ERCP IMAGING (S) report attached to summary : MICROBIOLOGY: report attached to summary; ACTIVITY: ab lynn HOME MEDICATIONS reviewed list remain the same CHANGES ON HOME MEDICATIONS none NEW MEDICATIONS oral antibiotics for five days Nitrofurantoin 100 mg bid TEACHING: Side effects adverse reaction of antibiotics advised patient to complete full cycle. Emergency instructions: The patient was instructed to present to the nearest Emergency Department or call 911 should their symptoms return or worsen. Discharge Instructions: RUN DATE: 09/01/25 [facility] PAGE 1 RUN TIME: [id number] [place] [address] Department of Laboratories [facility] # [id number] Vault Teller: Kenya Ash DO Specimen Report PATIENT: JED HOWARD ACCT: [id number] LOC: 3D U: [id number] AGE/SX: 70/F ROOM: 321 RE08/30/[address]: XIMENA GRACIA MD : 1955 BED: 1 DIS: STATUS: ADM IN TLOC: SPEC: [id number] GRAHAM: 08/30/25 STATUS: ELVIA REQ: [id number] RECD: 08/30/[address] [facility] [address]: RUIZ MEDLEY MD SOURCE: URINE CC ENTR: 08/30/[address] [facility] [address]: URINE CULTURE Procedure Result Rayshawn Date-Time URINE CULTURE Final 09/01/25-06 REPORT URINE >3 COLONY TYPES PRESENT MIXED [place] CONTAMINATION NO FURTHER STUDIES PENDING Home Medications: Active Scripts Nitrofurantoin Macrocrystal (Nitrofurantoin) 100 Mg Capsule, 1 CAP PO BID for 5 Days, #10 CAP 0 Refills Prov:DANIEL STEWARD 09/01/25 Reported Medications Metoprolol Succinate (Metoprolol Succinate) 100 Mg Tab.er.24h, 100 MG PO DAILY, TAB 07/26/25 Amlodipine Besylate (Amlodipine Besylate) 2.5 Mg Tablet, 1 TAB PO DAILY for 30 Days, #30 TAB 0 Refills 07/25/25 Levothyroxine Sodium (Levothyroxine) 112 Mcg Capsule, 1 CAP PO DAILY for 30 Days, #30 CAP 0 Refills 07/25/25 Hydrochlorothiazide (Hydrochlorothiazide) 50 Mg Tablet, 1 TAB PO DAILY for 30 Days, #30 TAB 0 Refills 07/25/25 Losartan Potassium (Losartan Potassium) 100 Mg Tablet, 1 TAB PO DAILY for 30 Days, #30 TAB 0 Refills 07/25/25 Metformin HCl (Metformin HCl) 500 Mg Tablet, 500 MG PO AM, TAB 07/25/25 New Medications: Nitrofurantoin Macrocrystal (Nitrofurantoin) 100 Mg Capsule 1 CAP PO BID for 5 Days, #10 CAP 0 Refills Continued Medications: Amlodipine Besylate (Amlodipine Besylate) 2.5 Mg Tablet 1 TAB PO DAILY for 30 Days, #30 TAB 0 Refills Hydrochlorothiazide (Hydrochlorothiazide) 50 Mg Tablet 1 TAB PO DAILY for 30 Days, #30 TAB 0 Refills Levothyroxine Sodium (Levothyroxine) 112 Mcg Capsule 1 CAP PO DAILY for 30 Days, #30 CAP 0 Refills Losartan Potassium (Losartan Potassium) 100 Mg Tablet 1 TAB PO DAILY for 30 Days, #30 TAB 0 Refills Metformin HCl (Metformin HCl) 500 Mg Tablet 500 MG PO AM, TAB Metoprolol Succinate (Metoprolol Succinate) 100 Mg Tab.er.24h 100 MG PO DAILY, TAB Time spent arranging discharge: 31-60 minutes ATTESTATION BY PHYSICIAN I have seen and examined the patient. I reviewed the documentation, medical decision making, and treatment plan as noted by the mid-level provider above. I agree with the findings and plan of care. LUIGI SORTO MD, [facility] Sep 01, 2025 11:40
[2025-09-01] MEDS ORDERED: SUCCINYLCHOLINE CHLORIDE 20 MG/ML 10 ML VIAL IVP ONE (12:22)
[2025-09-01] MEDS ORDERED: MIDAZOLAM HCL 1 MG/ML 2ML VIAL IVPB ONE (12:28)
[2025-09-01] MEDS ORDERED: GLYCOPYRROLATE 0.2 MG/ML 5 ML VIAL IM ONE (12:28)
[2025-09-01] MEDS ORDERED: NEOSTIGMINE METHYLSULFATE 1MG/ML IV ONE (12:29)
[2025-09-01] MEDS ORDERED: SUGAMMADEX SODIUM 200 MG/2 ML VIAL IV ONE (12:35)
[2025-09-01] MEDS ORDERED: FAMOTIDINE 20MG VIAL IV ONE (12:36)
[2025-09-01] MEDS: INDOMETHACIN 100 MG SUPP.RECT RC ONE (15:02)
--- NOTE | 2025-09-01 15:10 | NUR ---
UNIT ARRIVAL PATIENT ARRIVED ON UNIT FROM ERCP PROCEDURE PATIENT STABLE, ALERT AND ORIENTATED, NO PAIN, IN NO NOTABLE DISTRESS FAMILY AT BEDSIDE NO FURTHER QUESTIONS
[2025-09-01] MEDS: AMP/SULBAC 3GM+NS 100ML 100 ML IV SCH (17:02)
[2025-09-02] VITALS: BP 125/75; PULSE 58; RESP 20; TEMP 98.2
[2025-09-02 04:00] VITALS: BP 112/60; PULSE 68; RESP 16; TEMP 97.3
[2025-09-02 05:01] LABS: IMMATURE GRANULOCYTE ABSOLUTE 0.03 K/uL (0-1); NUCLEATED RED BLOOD CELLS 0.0 % (0.0-0.19); PLATELET COUNT (AUTO) 144 K/uL (130-400); RED BLOOD CELL COUNT(AUTO) 3.75 MIL/uL (4.00-5.50); RED CELL DISTRIBUTION WIDTH 13.2 % (11.0-15.5); WHITE BLOOD COUNT (AUTO) 5.9 K/uL (4.8-10.8)
[2025-09-02 05:21] LABS: ASPARTATE AMINOTRANSFERASE 25.0 U/L (10-37); CREATININE 0.9 mg/dL (0.5-1.0); GLOMERULAR FILTR. RATE CALC 69.0 mL/min (>90); GLUCOSE,RANDOM 108.0 mg/dL (70-105); SODIUM SERUM 140.0 mmol/L (136-145); TOTAL PROTEIN, SERUM 5.7 g/dL (6.0-8.3); UREA NITROGEN, BLOOD 11.0 mg/dL (7-18)
[2025-09-02 08:00] VITALS: BP 137/67; PULSE 68; RESP 20; TEMP 97.6
--- NOTE | 2025-09-02 11:43 | DS ---
Discharge Summary Hospital Course Summary: This is 70 year old female with past medical history of diabetes mellitus, hypertension, hyperlipidemia and hypothyroidism who presented to the emergency department with complaints of abdominal pain and epigastric pain that started midnight on . Patient stated that she also had some associated chills and subjective low-grade fever. Patient was recently admitted at [facility] back in [id number] for which patient was then found with choledocholithiasis and acute cholecystitis for which she had a laparoscopic cholecystectomy done by Dr. Plaza. During that admission, she was told to have a stone in the CBD and an ERCP was done but was unsuccessful but they rescheduled for another ERCP for September 01, 2025 but the patient came to the emergency early this morning due to persistent/severe abdominal and epigastric pain. Patient denies any nausea vomiting or diarrhea. Patient stated that she would still have some discomfort after she eats but has not had a full meal in the last 24 hours due to her abdominal pain. In the emergency department, her initial vitals were temperature 97.5 F, pulse 81, respiratory rate 20, blood pressure 144/82, pulse oximetry 99% on room air. Laboratory data reviewed, hematology is fairly unremarkable, chemistry showed random glucose of 142, total bilirubin of 1.6, AST 66, ALT 70, alkaline phosphatase 255, albumin 3.2. Was referred to the hospitalist for further evaluation and management. ] 08/31/25 patient is seen and examined. He is scheduled for ERCP in a.m.. Patient reports no fevers chills overnight. Primary nurse reports no events overnight 09/01/2025 patient is lying in bed waiting for her procedure ERCP to be done this afternoon. Urine cultures were contaminated patient has been afebrile no leukocytosis. Discussed patient's if GI clears she is okay to be discharged later on today. [place] 11/28/2024. Patient had her ERCP yesterday afternoon. Patient no signs pancreatitis lipase amylase normal. Patient already has an appointment to follow-up with GI on Monday. No fevers no chills. She is clinically and hemodynamically stable for discharge patient was instructed that she is on oral antibiotics upon discharge she verbalized understanding. Procedure(s): REASON: ABD PAIN, ELEVATED LFT ORDERING PHYSICIAN: ALLEN PLUMMER PROCEDURE: ABDOMEN - US ABDOMINAL COMPLETE EXAM: Complete Abdominal Ultrasound HISTORY: Abdominal pain and urinary tract infection. Prior imaging available for review. TECHNIQUE: Real-time grayscale and color Doppler ultrasound evaluation of the abdomen was performed. COMPARISON: Prior abdominal ultrasound dated July 29, [address] abdomen and pelvis dated July 25, 2025. FINDINGS: LIVER: The liver measures approximately 15 cm in craniocaudal dimension. Hepatic parenchyma demonstrates mildly increased echogenicity, suggestive of mild hepatic steatosis. No focal hepatic mass is identified. The main portal vein is patent with hepatopetal flow measuring approximately 14 cm/s. There is persistent intrahepatic biliary ductal dilatation measuring up to approximately 0.5 cm, similar to the prior examination. GALLBLADDER: The gallbladder is surgically absent. Previously noted gallbladder distention, cholelithiasis, sludge, and sonographic findings of cholecystitis are no longer present. BILIARY SYSTEM: The common bile duct measures approximately 5 mm in diameter, decreased compared with the prior study which measured up to 12 mm. No intrahepatic or extrahepatic biliary ductal dilatation is identified. PANCREAS: The pancreas is visualized and demonstrates normal size, contour, and echotexture without focal abnormality or ductal dilatation. AORTA AND IVC: The abdominal aorta measures approximately 2.8 cm proximally, 2 cm at the mid portion, and 1.5 cm distally, without aneurysmal dilatation. The inferior vena cava is patent. RIGHT KIDNEY: The right kidney measures approximately 8.3 x 5 x 3.3 cm and demonstrates normal cortical thickness and echogenicity, similar to the prior examination. No hydronephrosis or renal calculus is identified. LEFT KIDNEY: The left kidney measures approximately 8.4 x 5.1 x 3.8 cm. Cortical thickness and echogenicity are preserved. No hydronephrosis, renal calculus, or focal renal mass is identified. SPLEEN: The spleen measures approximately 13 cm in length, mildly enlarged. No focal splenic lesion is identified. ASCITES: No free fluid is identified. IMPRESSION: * Interval cholecystectomy with resolution of previously seen cholelithiasis, gallbladder distention, and cholecystitis. * Decreased caliber of the common bile duct with persistent mild intrahepatic biliary ductal dilatation measuring up to 0.5 cm. * Mild hepatic steatosis, similar to prior examinations. * Mild splenomegaly. * Normal sonographic appearance of the pancreas and kidneys. * No sonographic evidence of ascites. RECOMMENDATIONS: Per ACR Appropriateness Criteria, correlation with liver function tests is recommended given persistent intrahepatic biliary ductal dilatation. Further evaluation with MRCP may be considered if there is clinical or laboratory evidence of biliary obstruction or if symptoms persist. Assessment/Plan: discharged dx's; [Intractable abdominal pain, POA Urinary tract infection, POA Choledocholithiasis, POA Rule out cholangitis, POA ] Hyperglycemia with diabetes mellitus type 2, POA Elevated total bilirubin, POA PLAN: ADMISSION DATE: 08/30/2025 DISCHARGE DATE: 08/30/2025 DISPOSITION: Home CONDITION: Stable WEB SERVICES PROFESSIONAL(S): GI FOLLOW UP APPOINTMENT(S): Dr Connor one wk; PCP: Dr Katharine Baron 2-3 days. PROCEDURES: ERCP IMAGING (S) report attached to summary : MICROBIOLOGY: report attached to summary; ACTIVITY: HOME MEDICATIONS CHANGES ON HOME MEDICATIONS NEW MEDICATIONS TEACHING: Emergency instructions: The patient was instructed to present to the nearest Emergency Department or call 911 should their symptoms return or worsen. Discharge Instructions: RUN DATE: 09/01/25 [facility] PAGE 1 RUN TIME: [id number] [place] [address] Department of Laboratories [facility] # [id number] Radio Equipment Installer: Kenya Ash DO Specimen Report PATIENT: JED HOWARD ACCT: [id number] LOC: [facility] U: [id number] AGE/SX: 70/F ROOM: 321 RE08/30/[address]: XIMENA GRACIA MD : 1955 BED: 1 DIS: STATUS: ADM IN TLOC: SPEC: [id number] GRAHAM: 08/30/25 STATUS: ELVIA REQ: [id number] RECD: 08/30/25 [facility] DR: RUIZ MEDLEY MD SOURCE: URINE CC ENTR: 08/30/25-1138 [facility] DR: SHARIF HARMON [facility]: ORDERED: URINE CULTURE Procedure Result Rayshawn Date-Time URINE CULTURE Final 09/01/25-655 REPORT URINE >3 COLONY TYPES PRESENT MIXED [place] CONTAMINATION NO FURTHER STUDIES PENDING Home Medications: Reported Medications Metoprolol Succinate (Metoprolol Succinate) 100 Mg Tab.er.24h, 100 MG PO DAILY, TAB 07/26/25 Amlodipine Besylate (Amlodipine Besylate) 2.5 Mg Tablet, 1 TAB PO DAILY for 30 Days, #30 TAB 0 Refills 07/25/25 Levothyroxine Sodium (Levothyroxine) 112 Mcg Capsule, 1 CAP PO DAILY for 30 Days, #30 CAP 0 Refills 07/25/25 Hydrochlorothiazide (Hydrochlorothiazide) 50 Mg Tablet, 1 TAB PO DAILY for 30 Days, #30 TAB 0 Refills 07/25/25 Losartan Potassium (Losartan Potassium) 100 Mg Tablet, 1 TAB PO DAILY for 30 Days, #30 TAB 0 Refills 07/25/25 Metformin HCl (Metformin HCl) 500 Mg Tablet, 500 MG PO AM, TAB 07/25/25 New Medications: Nitrofurantoin Macrocrystal (Nitrofurantoin) 100 Mg Capsule 1 CAP PO BID for 5 Days, #10 CAP 0 Refills Continued Medications: Amlodipine Besylate (Amlodipine Besylate) 2.5 Mg Tablet 1 TAB PO DAILY for 30 Days, #30 TAB 0 Refills Hydrochlorothiazide (Hydrochlorothiazide) 50 Mg Tablet 1 TAB PO DAILY for 30 Days, #30 TAB 0 Refills Levothyroxine Sodium (Levothyroxine) 112 Mcg Capsule 1 CAP PO DAILY for 30 Days, #30 CAP 0 Refills Losartan Potassium (Losartan Potassium) 100 Mg Tablet 1 TAB PO DAILY for 30 Days, #30 TAB 0 Refills Metformin HCl (Metformin HCl) 500 Mg Tablet 500 MG PO AM, TAB Metoprolol Succinate (Metoprolol Succinate) 100 Mg Tab.er.24h 100 MG PO DAILY, TAB Time spent arranging discharge: 31-60 minutes ATTESTATION BY PHYSICIAN I have seen and examined the patient. I reviewed the documentation, medical decision making, and treatment plan as noted by the mid-level provider above. I agree with the findings and plan of care. LUIGI SORTO MD, [facility] Sep 02, 2025 11:43
[2025-09-02 12:00] VITALS: BP 131/68; PULSE 67; RESP 20; TEMP 97.8
[2025-09-02 12:46] VITALS: O2SAT 100
--- NOTE | 2025-09-02 14:05 | NUR ---
Patient cleared by GI. Patient has follow up appointment already scheduled on 09/07/2025. IV removed, discharge paperwork given. Discharged home with spouse
--- NOTE | 2025-09-05 11:34 | HMCIMG ---
ERCP BILI/PANC DUCT HISTORY: cbd stone TECHNIQUE: ERCP BILI/PANC DUCT FINDINGS/IMPRESSION: Fluoroscopic image/s obtained for procedure documentation. Please see operative report for more details. Fluoroscopy time 1.7 minutes
== END 2025-09-02 14:01 | disposition home or self-care (01) ==
LOC: EDH 10:21 → EDHIP 12:34 → INTOOBSV 12:34 → UNDOADMOB 12:34 → EDHIP 15:15 → 3DH 15:15
PROVIDERS: ADMIT Internal Medicine; ATTEND Internal Medicine
DX: K80.50 Calculus of bile duct without cholangitis or cholecystitis without obstruction (principal); N39.0 Urinary tract infection, site not specified; I10 Essential (primary) hypertension; E78.5 Hyperlipidemia, unspecified; E11.65 Type 2 diabetes mellitus with hyperglycemia; E03.9 Hypothyroidism, unspecified; K59.00 Constipation, unspecified; K57.30 Diverticulosis of large intestine without perforation or abscess without bleeding; K76.0 Fatty (change of) liver, not elsewhere classified; K82.1 Hydrops of gallbladder; Z90.49 Acquired absence of other specified parts of digestive tract; Z98.890 Other specified postprocedural states; Z79.899 Other long term (current) drug therapy
CPT/HCPCS: 96376 ×4; 96361 ×3; 96365; 96366 ×4; 96375; 99285; 80053 ×3; 83690 ×2; 85025 ×3; 87086; 82948 ×12; 81001; 36415 ×4; 76700; 96367; 80076; 83735 ×3; 80048; 85027; 74330; 43264; 43275; 43273; 82150; J7030 ×2; J2470 ×7; J0295 ×12; J3475; G0378 ×26; J1308; J3010; J0330; J3490 ×3; J2250; J2704; J2710; J2371; Q9967; A4215; A4223; A4657 ×3; A7002; A4222; A4606; C1769; C1773; 74328